=== PATIENT | male | born 1930 | race Hispanic/Latino ===

== ENCOUNTER 2016-11-10 07:47 | Day surgery (SDC) | payer MEDICARE, MEDICAID ==
[2016-10-31 08:29] VITALS: BMI 19.5
[2016-11-10] MEDS ORDERED: cefTRIAXone IV 1 gm in Dextros 50 ML IVPB ONE (08:08)
[2016-11-10] MEDS ORDERED: Iohexol 240 200 ML IJ ONE (08:08)
[2016-11-10] MEDS ORDERED: Lactated Ringer's 500 ML IV ONE ×2 (08:10→08:41)
[2016-11-10] MEDS ORDERED: Midazolam 2 MG/2 ML VIAL ONE (08:13)
--- NOTE | 2016-11-10 08:35 | PCM.SURG1 ---
Surgeon's Initial Post Op Note - Surgeon's Notes Surgeon: maurice curran Construction Management Assistant: none Pre-Operative Diagnosis: urinary retention Operative Findings: same Post-Operative Diagnosis: same Operation Performed: cystogram, change of cystostomy tube Specimen/Specimens Removed: urine Estimated Blood Loss: EBL {In ML}: 0 Blood Products Given: N/A Drains Used: Supra-Pubic Post-Op Condition: Good Date of Surgery/Procedure: 11/10/16 Time of Surgery/Procedure: 08:35
--- NOTE | 2016-11-10 10:16 | RAD ---
PROCEDURE: Fluoroscopy up to 1 hr. HISTORY: BPH, URINARY RETENTION COMPARISON: None TECHNIQUE: Standard protocol for this study/examination. FINDINGS: Submitted images from the current procedure: 6.0 IMPRESSION: Less than 1 hr fluoroscopic time utilized during performance of the procedure.
--- NOTE | 2016-11-11 08:06 | CARD ---
APPROVED REPORT EKG Measurement Heart [id number] W[place] 174P4 [id number] <Conclusion> Normal sinus rhythm Left axis deviation Left bundle branch block Abnormal ECG
[2016-11-12 15:28] VITALS: BP 138/91; PULSE 73; RESP 18; TEMP 97.5; O2SAT 98
--- NOTE | 2016-11-14 08:01 | OP ---
PROCEDURE DATE: 11/10/2016 PREOPERATIVE DIAGNOSES: Urinary retention, benign prostatic hypertrophy. POSTOPERATIVE DIAGNOSES: Urinary retention, benign prostatic hypertrophy. PROCEDURE: Cystogram. Change of cystostomy tube. The procedure was performed under fluoroscopic control. The patient received perioperative antibiotics. The patient was placed in the supine position. The abdomen was prepped in sterile fashion. Iodinated contrast dye was instilled via the cystostomy tube. The cystostomy tube was noted to be wi thin the bladder, although only just within the bladder. There was noted to be moderate bladder trab eculation. There was elevation of the bladder base consistent with prostatic hypertrophy. The syringe was attached to the balloon port to deflate the balloon. There was no fluid in the ballo on port. Thus, there was no fluid able to be removed. The catheter was slid out without difficulty. In fact, the balloon had been fully deflated. A new 18-Boliv[place] silicone Gunderson catheter was inserted through the cystostomy tract into the bladder. The balloon was inflated with 10 mL of saline. The proper balloon position and cystostomy tube posit ion was confirmed on fluoroscopy. Bladder drainage was clear. The patient had his urine sent for bacteriologic examination as well. A sterile dressing was applied. The patient tolerated the procedure without complication. The patient tolerated the procedure without complication. Elisha Mejia MD cc: [phone] TT: 11/14/2016 08:01:05 en
== END 2016-11-10 11:36 | disposition home or self-care (01) ==
LOC: C.SDS 07:47
PROVIDERS: ATTEND Urology
DX: N40.1 Benign prostatic hyperplasia with lower urinary tract symptoms (principal); R33.8 Other retention of urine
CPT/HCPCS: 51705; 76000; 87086; 87181; 93005; J0696; J7120

== ENCOUNTER 2017-02-02 07:06 | Day surgery (SDC) | payer MEDICAID, MEDICARE, OTHER ==
[2016-10-31 08:29] VITALS: BMI 19.5
[2017-02-02] MEDS ORDERED: cefTRIAXone IV 1 gm in Dextros 0 ML IVPB ONE (07:51)
[2017-02-02 07:58] VITALS: RESP 20; TEMP 97.6
[2017-02-02 07:58] LABS: BASO # 0.1 K/uL (0.0-0.2); BASO % 0.8 % (0.0-2.0); EOS # 0.3 K/uL (0.0-0.7); EOS % 2.7 % (0.0-4.0); LYMPH # 0.8 K/uL (1.0-4.3); LYMPH % 7.2 % (20.0-40.0); MEAN CELL VOLUME 95.2 fL (80.0-94.0); MEAN CORPUSCULAR HEMOGLOBIN 31.7 pg (27.0-31.0); MEAN CORPUSCULAR HGB CONC 33.3 g/dL (33.0-37.0); MEAN PLATELET VOLUME 9.2 fL (7.2-11.7); MONO # 1.6 K/uL (0.0-0.8); MONO % 14.6 % (0.0-10.0); NRBC % 0.1 % (0.0-2.0); PLATELET COUNT 229 K/uL (130-400); RED CELL DISTRIBUTION WIDTH 15.5 % (11.5-14.5); WHITE BLOOD COUNT 10.7 K/uL (4.8-10.8)
[2017-02-02 08:19] LABS: POTASSIUM 3.5 mmol/L (3.6-5.2)
[2017-02-02 08:21] LABS: BILIRUBIN,TOTAL 0.9 mg/dL (0.2-1.3)
[2017-02-02 08:22] LABS: CALCIUM 8.9 mg/dl (8.6-10.4)
[2017-02-02 08:45] LABS: EOSINOPHIL 2 % (0-4); NEUTROPHIL 73 % (50-75); TOTAL CELLS COUNTED 100
[2017-02-02] MEDS ORDERED: Lactated Ringer's 1,000 ML IV ONE (09:03)
[2017-02-02] MEDS ORDERED: Iohexol 240 200 ML IJ ONE (09:04)
[2017-02-02] MEDS ORDERED: Lidocaine Hydrochloride 5 ML INJ ONE (09:06)
[2017-02-02] MEDS ORDERED: Propofol 10 mg/ml Inj (20 ML) ONE (09:06)
[2017-02-02] MEDS ORDERED: Gentamicin 80 mg in 0.9% NS 80 MG/100 ML BAG IVPB ONE (09:07)
--- NOTE | 2017-02-02 09:19 | PCM.SURG1 ---
Surgeon's Initial Post Op Note - Surgeon's Notes Surgeon: maurice curran Radio Broadcaster: none Type of Anesthesia: IV Sedation Pre-Operative Diagnosis: urinary retention Operative Findings: sane Post-Operative Diagnosis: same Operation Performed: cystogram, change of cystostomy tube Specimen/Specimens Removed: urine Estimated Blood Loss: EBL {In ML}: 0 Blood Products Given: N/A Drains Used: Supra-Pubic Post-Op Condition: Good Date of Surgery/Procedure: 02/02/17 Time of Surgery/Procedure: 09:19
[2017-02-02 09:46] VITALS: O2SAT 98
--- NOTE | 2017-02-02 10:18 | OP ---
PROCEDURE DATE: 02/02/2017 PREOPERATIVE DIAGNOSIS: Urinary retention. Prostatic enlargement. POSTOPERATIVE DIAGNOSIS: Urinary retention. Prostatic enlargement. PROCEDURES: Cystogram. Change of cystostomy tube. OPERATING SURGEON: Dr. Elisha Mejia The patient was in the supine position. The patient received perioperative antibiotics. The abdomen was prepped and draped in a sterile fashion. Sedation was provided by the anesthesiologist. Iodinated contrast dye was instilled via the cystostomy tube. Procedure was performed under fluorosc opic control. The bladder was noted to be trabeculated. There was elevation of the bladder base consistent with pr ostatic hypertrophy. The cystostomy tube balloon was deflated. There was only 2.5 mL within the balloon. The cystostomy catheter was removed. A new silicone Gunderson catheter was inserted into the bladder. The balloon was filled with 10 mL of sa line. The cystogram demonstrated proper tube position. Post-drainage film was obtained as well. The sterile dressing was applied. Urine had been sent for bacteriologic examination. The patient tolerated the procedure without complication. Elisha Mejia MD cc: [phone] TT: 02/02/2017 10:18:00 en
[2017-02-02 11:16] VITALS: PULSE 68
[2017-02-02 11:18] VITALS: BP 142/79
--- NOTE | 2017-02-03 16:54 | RAD ---
. PROCEDURE: HISTORY: Urinary retention COMPARISON: None TECHNIQUE: Total fluoroscopic time utilized during the procedure: FINDINGS: Submitted images from the current procedure: 2 Correlation with the procedure performed findings noted during fluoroscopy. Please refer to the physician's notes doing the procedure IMPRESSION: Less than 1 hour fluoroscopic time utilized during performance of the procedure
--- NOTE | 2017-02-05 00:49 | CARD ---
APPROVED REPORT EKG Measurement Heart [id number] CT 184P14 [id number] <Conclusion> Normal sinus rhythm Left axis deviation Left bundle branch block Abnormal ECG
== END 2017-02-02 11:00 | disposition home or self-care (01) ==
LOC: C.SDS 07:06
PROVIDERS: ATTEND Urology
DX: N40.0 Benign prostatic hyperplasia without lower urinary tract symptoms (principal); R33.9 Retention of urine, unspecified
CPT/HCPCS: 36415; 51705; 76000; 80053; 85025; 87086; 93005; J1580; J7120; Q9966

== ENCOUNTER 2017-03-14 18:03 | Inpatient (IN) | payer MEDICARE, MEDICAID ==
[2017-03-14 18:34] VITALS: BMI 20.7
[2017-03-14] MEDS ORDERED: cefTRIAXone IV 1 gm in Dextros 50 ML IV ONE (18:51)
[2017-03-14] MEDS ORDERED: Sodium Chloride 0.9% 1,000 ML IV ONE ×2 (18:51→19:47)
--- NOTE | 2017-03-14 19:29 | C.PDOC ---
History Of Present Illness 86 year old male who presents to the ER via EMS after being febrile for the past 3 day, associated with poor PO intake and vomiting for the past 3 weeks. Patient has a chronic indwelling suprapubic catheter and has had multiple visits for urosepsis; denies abdominal pain or hematuria. Time Seen by Provider: 03/14/17 18:45 Chief Complaint (Nursing): Abdominal Pain History Per: Patient History/Exam Limitations: no limitations Onset/Duration Of Symptoms: Days Current Symptoms Are (Timing): Still Present Location Of Pain/Discomfort: Suprapubic Radiation Of Pain To:: None Quality Of Discomfort: Unable To Describe Associated Symptoms: Fever, Vomiting, Loss Of Appetite. denies: Nausea, Urinary Symptoms Exacerbating Factors: None Alleviating Factors: None Recent travel outside of the [place]: No Past Medical History Reviewed: Historical Data, Nursing Documentation, Vital Signs Vital Signs: Last Vital Signs Temp 97.8 F 03/14/17 22:12 Pulse 110 H 03/14/17 22:12 Resp 25 H 03/14/17 22:12 BP 131/84 03/14/17 22:12 Pulse Ox 96 03/14/17 23:26 - Medical History PMH: Anemia, Arthritis, Atrial Fibrillation, Benign Prostatic Hyperplasia, Bronchitis, Cardia Arrhythmia (A fib), CHF, COPD, HTN, Pneumonia, Chronic Kidney Disease (bladder/urine infection), TIA - [facility] Procedures CHANGE DRAINAGE DEVICE IN BLADDER, EXTERNAL APPROACH (02/14/16) CYSTOGRAM NEC (02/02/15) CYSTOSCOPY NEC (10/14/14) DX ULTRASOUND NEC (07/12/14) DX ULTRASOUND-ABDOMEN (01/31/14) DX ULTRASOUND-URINARY (01/06/14) EXCISION OF FACE SKIN, EXTERNAL APPROACH (02/14/16) EXCISION OF FACE SKIN, EXTERNAL APPROACH, DIAGNOSTIC (02/14/16) EXCISION OF FACE SUBCU/FASCIA, OPEN APPROACH, DIAGN (02/14/16) EXCISION OF NECK SKIN, EXTERNAL APPROACH (02/14/16) FLUOROSCOPY OF SUP VENA CAVA USING L OSM CONTRAST, GUIDANCE (02/14/16) INSERTION OF INFUSION DEV INTO SUP VENA CAVA, PERC APPROACH (02/14/16) OTH TRANSURETHRAL PROSTATECTOMY (12/09/13) OTHER SUPRAPUBIC CYSTOSTOMY (02/02/15) PARENTERAL INFUSION OF CONCENTRATED NUT. SUBSTANCE (01/02/15) PERCUTANEOUS CYSTOSTOMY (01/31/14) REPLACE CYSTOSTOMY TUBE (04/17/15) REPLACE FACE SKIN W AUTOL SUB, FULL THICK, DIRECTOR OF SECURITY (02/14/16) REPLACE INDWELLING CATH (01/06/14) TRANSFER FACE SKIN, EXTERNAL APPROACH (02/14/16) ULTRASONOGRAPHY OF SUPERIOR VENA CAVA, GUIDANCE (02/14/16) URETHRAL DILATION (12/09/13) VENOUS CATHETERIZATION NEC (01/18/14) Family History: States: Unknown Family Hx - Social History Hx Tobacco Use: No Hx Alcohol Use: No - Immunization History Hx Tetanus Toxoid Vaccination: Yes Hx Influenza Vaccination: No Hx Pneumococcal Vaccination: Yes Review Of Systems Constitutional: Positive for: Fever Gastrointestinal: Positive for: Vomiting. Negative for: Abdominal Pain Genitourinary: Negative for: Hematuria Physical Exam - Physical Exam Appears: Non-toxic, Other (Weak) Skin: Warm, Dry, Pale Head: Atraumatic, Normacephalic Oral Mucosa: Moist Chest: Symmetrical, No Tenderness Cardiovascular: Rhythm Regular, No Murmur Respiratory: Normal Breath Sounds, No Rales, No Rhonchi, No Wheezing Gastrointestinal/Abdominal: Soft, No Tenderness, Other (Suprapubic catheter with cloudy urine) Neurological/Psych: Oriented x3, Normal Speech, Normal Cognition ED Course And Treatment - Laboratory Results Result Diagrams: 03/14/17 19:31 03/14/17 19:31 Lab Interpretation: Abnormal (UA 3800 wbc's) ECG: Interpreted By Az ECG Rhythm: Atrial Fibrillation, L BBB (unchanged from prior) ECG Interpretation: Abnormal Rate From EC O2 Sat by Pulse Oximetry: 96 Pulse Ox Interpretation: Normal - Radiology CXR: Interpreted by Az CXR Interpretation: Yes: No Acute Disease Progress Note: EKG, CXR, and blood culture ordered. Ceftriaxone and IV fluids administered. Reevaluation Time: 20:04 Reassessment Condition: Improved - Physician Consult Information Outcome Of Conversation: 2006: d/w Krzysztof Yepez- PMOctavio- ok to Obs Medical Decision Making Medical Decision Making: recurrent urosepsis related to chronic suprapubic catheter Disposition Doctor Will See Patient In The: Hospital Counseled Patient/Family Regarding: Studies Performed, Diagnosis - Disposition Disposition: HOSPITALIZED Disposition Time: 20:05 Condition: GOOD - Clinical Impression Clinical Impression: Sepsis, UTI (lower urinary tract infection), Dehydration symptoms, Dehydration - Scribe Statement The provider has reviewed the documentation as recorded by the Scribe Jose Newell All medical record entries made by the Scribe were at my direction and personally dictated by me. I have reviewed the chart and agree that the record accurately reflects my personal performance of the history, physical exam, medical decision making, and the department course for this patient. I have also personally directed, reviewed, and agree with the discharge instructions and disposition.
[2017-03-14 19:34] LABS: BASO # 0.1 K/uL (0.0-0.2); BASO % 0.4 % (0.0-2.0); EOS # 0.3 K/uL (0.0-0.7); EOS % 1.9 % (0.0-4.0); HEMOGLOBIN 13.4 g/dL (12.0-18.0); LYMPH # 0.8 K/uL (1.0-4.3); LYMPH % 5.8 % (20.0-40.0); MEAN CORPUSCULAR HEMOGLOBIN 32.2 pg (27.0-31.0); MEAN CORPUSCULAR HGB CONC 34.3 g/dL (33.0-37.0); MEAN PLATELET VOLUME 8.3 fL (7.2-11.7); MONO % 14.9 % (0.0-10.0); NEUT # 10.4 K/uL (1.8-7.0); PLATELET COUNT 265 K/uL (130-400); RBC 4.17 Mil/uL (4.40-5.90); RED CELL DISTRIBUTION WIDTH 15.1 % (11.5-14.5); WHITE BLOOD COUNT 13.5 K/uL (4.8-10.8)
[2017-03-14 19:42] LABS: ALBUMIN 3.6 g/dL (3.5-5.0)
[2017-03-14 19:45] LABS: ALB/GLOB RATIO 0.8 (1.0-2.1)
[2017-03-14 19:46] LABS: CALCIUM 8.9 mg/dl (8.6-10.4)
[2017-03-14] MEDS ORDERED: cefTRIAXone IV 1 gm in Dextros 50 ML IVPB ONE (19:52)
[2017-03-14] MEDS ORDERED: Sodium Chloride 0.9% 1,000 ML ONE (19:52)
[2017-03-14 19:54] LABS: SQUAMOUS EPITHIAL 2 /hpf (0-5); URINE BACTERIA MANY (<OCC); URINE BILIRUBIN NEGATIVE (NEGATIVE); URINE BLOOD 1+ (NEGATIVE); URINE CLARITY Turbid (Clear); URINE COLOR Yellow (YELLOW); URINE GLUCOSE (UA) NORMAL (Normal); URINE LEUKOCYTE ESTERASE 3+ Leu/uL (Negative); URINE NITRATE POSITIVE (NEGATIVE); URINE PROTEIN 2+ mg/dL (NEGATIVE); URINE UROBILINOGEN NORMAL mg/dL (0.2-1.0); WBC CLUMPS MANY /hpf
[2017-03-14 19:58] LABS: TROPONIN I 0.013 ng/mL (0.00-0.120)
[2017-03-14 20:09] LABS: EOSINOPHIL 1 % (0-4); LYMPHOCYTE 9 % (20-40); MONOCYTE 9 % (0-10); NEUTROPHIL 81 % (50-75); PLATELET ESTIMATE NORMAL (NORMAL); TOTAL CELLS COUNTED 100
[2017-03-14] MEDS: Dextrose 5%/0.9% NS 1,000 ML IV SCH (22:25)
[2017-03-15 00:22] VITALS: RESP 20
[2017-03-15] MEDS: Dextrose 5%/0.9% NS 1,000 ML IV SCH ×3 (08:00→17:00)
--- NOTE | 2017-03-15 10:33 | RAD ---
PROCEDURE: CHEST RADIOGRAPH, 1 VIEW HISTORY: Shortness of breath COMPARISON: 02/21/2016. FINDINGS: LUNGS: The lungs are well inflated and clear. PLEURA: No pneumothorax or pleural fluid seen. CARDIOVASCULAR: Normal. OSSEOUS STRUCTURES: No significant abnormalities. VISUALIZED UPPER ABDOMEN: Normal. OTHER FINDINGS: None. IMPRESSION: No active pulmonary disease.
--- NOTE | 2017-03-15 11:15 | CP.PCM.HP ---
History of Present Illness - History of Present Illness History of Present Illness: HPI: 86 year old male, h/o colitis, BPH, s/p suprapubic catheter, atrial fibrillation seen in ER lethargic. C/o poor appetite and abdominal pain. Present on Admission - Present on Admission Any Indicators Present on Admission: Yes History of DVT/PE: No History of Uncontrolled Diabetes: No Urinary Catheter: Yes Decubitus Ulcer Present: No Review of Systems - Review of Systems All systems: reviewed and no additional remarkable complaints except (bedridden , awake, abdominal pain, no diarrhea, no fever, poor appetite) Past Patient History - Infectious Disease Hx of Infectious Diseases: None, C.diff - Tetanus Immunizations Tetanus Immunization: Unknown - Past Medical History & Family History Past Medical History?: Yes - Past Social History Smoking Status: Never Smoked - CARDIAC Hx Atrial Fibrillation: Yes Hx Cardia Arrhythmia: Yes (A fib) Hx Congestive Heart Failure: Yes Hx Hypertension: Yes - PULMONARY Hx Bronchitis: Yes Hx Chronic Obstructive Pulmonary Disease (COPD): Yes Hx Pneumonia: Yes - NEUROLOGICAL Hx Transient Ischemic Attacks (TIA): Yes - HEENT Hx HEENT Problems: Yes Hx Cataracts: Yes Hx Deafness: Yes Other/Comment: [place] - RENAL Hx Chronic Kidney Disease: Yes (bladder/urine infection) - HEMATOLOGICAL/ONCOLOGICAL Hx Anemia: Yes - INTEGUMENTARY Hx Dermatological Problems: Yes Hx Squamous Cell: Yes - MUSCULOSKELETAL/RHEUMATOLOGICAL Hx Arthritis: Yes Hx Falls: No - GASTROINTESTINAL Hx Gastrointestinal Disorders: Yes Hx Clostridium Difficile: Yes Hx Colitis: Yes Other/Comment: HX of fecal transplant - GENITOURINARY/GYNECOLOGICAL Hx Genitourinary Disorders: Yes Hx Hematuria: Yes (urinary retention) Hx Prostate Problems: Yes (BPH) Other/Comment: Suprapubic Catheter secondary to big prostate. 04/17/15 IR CYSTOSTOMY TUBE INSERTION. 10/29/15, 04/23/16 CYSTO WITH CYSTOSTOMY TUBE CHANGE - SURGICAL HISTORY Hx Surgeries: Yes Hx Herniorrhaphy: Yes Other/Comment: TURP-2011 HERNIA REPAIR 2011,Cystoscopy-01/06/14,Suprapubic Cystostomy-01/28/14,Urethral dilatation-12/09/13,. EXCISION FACIAL CYST. , 11/10/16-CYSTO CHANGE CYSTOSTOMY TUBE - ANESTHESIA Hx Anesthesia: Yes Hx Anesthesia Reactions: No Hx Malignant Hyperthermia: No Meds Allergies/Adverse Reactions: Allergies Allergy/AdvReac Type Severity Reaction Status Date / Time budesonide [From Symbicort] Allergy SHORTNESS Verified 03/14/17 18:34 OF BREATH ciprofloxacin Allergy RASH Verified 03/14/17 18:34 dabigatran etexilate Allergy RASH Verified 03/14/17 18:34 formoterol fumarate Allergy SHORTNESS Verified 03/14/17 18:34 [From Symbicort] OF BREATH latex Allergy RASH Verified 03/14/17 18:34 Sulfa (Sulfonamide Allergy RASH Verified 03/14/17 18:34 Antibiotics) Physical Exam - Constitutional Appears: Chronically Ill - Head Exam Head Exam: NORMAL INSPECTION - Eye Exam Eye Exam: Normal appearance - ENT Exam ENT Exam: Normal Exam - Neck Exam Neck exam: Positive for: Normal Inspection - Respiratory Exam Respiratory Exam: NORMAL BREATHING PATTERN - Cardiovascular Exam Cardiovascular Exam: Irregular Rhythm - GI/Abdominal Exam GI & Abdominal Exam: Soft - Rectal Exam Rectal Exam: Deferred - Extremities Exam Extremities exam: Positive for: normal inspection - Neurological Exam Neurological exam: Alert - Psychiatric Exam Psychiatric exam: Normal Mood Results - Vital Signs Recent Vital Signs: Last Vital Signs Temp 98.2 F 03/15/17 08:37 Pulse 96 H 03/15/17 08:37 Resp 20 03/15/17 08:37 BP 135/85 03/15/17 08:37 Pulse Ox 95 03/15/17 08:37 - Labs Result Diagrams: 03/14/17 19:31 03/14/17 19:31 Assessment & Plan (1) Sepsis Status: Acute (2) Atrial fibrillation Status: Chronic (3) Renal insufficiency Status: Acute - Assessment and Plan (Free Text) Assessment: A/P: Continue medications. Iv hydration. ID consult - Date & Time Date: 03/15/17 Time: 11:20
[2017-03-15] MEDS: Albuterol-Ipratrop 3 mg / 0.5 (3 ml) UD INH SCH ×2 (13:32→20:48)
--- NOTE | 2017-03-15 14:39 | CP.PCM.CON ---
History of Present Illness - History of Present Illness History of Present Illness: INFECTIOUS DISEASE CONSULT; HPI; 86 year old male who presents to the ER via EMS after being febrile for the past 3 day, associated with poor PO intake and vomiting for the past 3 weeks. Patient has a chronic indwelling suprapubic catheter and has had multiple visits for urosepsis; denies abdominal pain or hematuria. IN THE ER PATIENT WAS APPROPRIATELY CULTURED AND GIVEN A DOSE OF ROCEPHIN 1 G. 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 PATIENT ALSO HAS HISTORY OF SQUAMOUS CELL CA BU[place] MUCOSA. S/P BX AND RESECTION 2016 PATIENT PRESENTLY DENIES ANY DIARRHEA. HISTORY OBTAINED FROM THE [facility]-DR NONI CRESPO. INFECTIOUS DISEASE CONSULTATION REQUESTED BY DR CINTRON PATIENT HAS MULTIPLE ALLERGIES TO cIPRO, SULFA, LATEX, DABIGATRAN. PMH: Anemia, Arthritis, Atrial Fibrillation, Benign Prostatic Hyperplasia, Bronchitis, Cardia Arrhythmia (A fib), CHF, COPD, HTN, Pneumonia, Chronic Kidney Disease (bladder/urine infection), TIA ALLERGY; CIPRO, SULFA,DABIGATRAN, LATEX. SOCIAL HISTORY; DENIES SMOKING , SOCIAL DRINKING. FAMILY HISTORY; UNREMARKABLE. Review of Systems - Constitutional Constitutional: Fever, Malaise, Weakness. absent: Chills - EENT Nose/Mouth/Throat: absent: Mouth Lesions - Cardiovascular Cardiovascular: absent: Chest Pain - Respiratory Respiratory: absent: Cough - Gastrointestinal Gastrointestinal: Abdominal Pain, Nausea, Vomiting. absent: Diarrhea - Genitourinary Genitourinary: Pyuria, Freq UTI, Hx /Renal Surgery (PATIENT HAS A SUPRAPUBIC CATHETER SECONDARY TO HIS PROSTATIC HYPERTROPHY/OBSTRUCTIVE UROPATHY.). absent : Bladder Distension - Neurological Neurological: Abnormal Hearing - Hematologic/Lymphatic Hematologic: As Per HPI Past Patient History - Infectious Disease Hx of Infectious Diseases: None, C.diff - Tetanus Immunizations Tetanus Immunization: Unknown - Past Medical History & Family History Past Medical History?: Yes - Past Social History Smoking Status: Never Smoked - CARDIAC Hx Atrial Fibrillation: Yes Hx Cardia Arrhythmia: Yes (A fib) Hx Congestive Heart Failure: Yes Hx Hypertension: Yes - PULMONARY Hx Bronchitis: Yes Hx Chronic Obstructive Pulmonary Disease (COPD): Yes Hx Pneumonia: Yes - NEUROLOGICAL Hx Transient Ischemic Attacks (TIA): Yes - HEENT Hx HEENT Problems: Yes Hx Cataracts: Yes Hx Deafness: Yes Other/Comment: [place] - RENAL Hx Chronic Kidney Disease: Yes (bladder/urine infection) - HEMATOLOGICAL/ONCOLOGICAL Hx Anemia: Yes - INTEGUMENTARY Hx Dermatological Problems: Yes Hx Squamous Cell: Yes - MUSCULOSKELETAL/RHEUMATOLOGICAL Hx Arthritis: Yes Hx Falls: No - GASTROINTESTINAL Hx Gastrointestinal Disorders: Yes Hx Clostridium Difficile: Yes Hx Colitis: Yes Other/Comment: HX of fecal transplant - GENITOURINARY/GYNECOLOGICAL Hx Genitourinary Disorders: Yes Hx Hematuria: Yes (urinary retention) Hx Prostate Problems: Yes (BPH) Other/Comment: Suprapubic Catheter secondary to big prostate. 04/17/15 IR CYSTOSTOMY TUBE INSERTION. 10/29/15, 04/23/16 CYSTO WITH CYSTOSTOMY TUBE CHANGE - SURGICAL HISTORY Hx Surgeries: Yes Hx Herniorrhaphy: Yes Other/Comment: TURP-2011 HERNIA REPAIR 2011,Cystoscopy-01/06/14,Suprapubic Cystostomy-01/28/14,Urethral dilatation-12/09/13,. EXCISION FACIAL CYST. , 11/10/16-CYSTO CHANGE CYSTOSTOMY TUBE - ANESTHESIA Hx Anesthesia: Yes Hx Anesthesia Reactions: No Hx Malignant Hyperthermia: No Meds Allergies/Adverse Reactions: Allergies Allergy/AdvReac Type Severity Reaction Status Date / Time budesonide [From Symbicort] Allergy SHORTNESS Verified 03/14/17 18:34 OF BREATH ciprofloxacin Allergy RASH Verified 03/14/17 18:34 dabigatran etexilate Allergy RASH Verified 03/14/17 18:34 formoterol fumarate Allergy SHORTNESS Verified 03/14/17 18:34 [From Symbicort] OF BREATH latex Allergy RASH Verified 03/14/17 18:34 Sulfa (Sulfonamide Allergy RASH Verified 03/14/17 18:34 Antibiotics) - Medications Medications: Current Medications Albuterol/Ipratropium (Duoneb 3 Mg/0.5 Mg (3 Ml) Ud) 3 ml INH RQ6 [facility] Last Admin: 03/15/17 13:32 Dose: 3 ml Dextrose/Sodium Chloride (Dextrose 5%/0.9% Ns 1000 Ml) 1,000 mls @ 100 mls/hr IV .Q10H [facility] Last Admin: 03/15/17 13:30 Dose: 100 mls/hr Aztreonam 500 mg/ Sodium (Chloride) 50 mls @ 100 mls/hr IVPB Q8 [facility] Last Admin: 03/15/17 13:30 Dose: 100 mls/hr Metoclopramide HCl (Reglan) 10 mg IVP Q12 [facility] Last Admin: 03/15/17 09:59 Dose: 10 mg Physical Exam - Constitutional Appears: No Acute Distress, Chronically Ill - Head Exam Head Exam: NORMAL INSPECTION - Eye Exam Eye Exam: EOMI, PERRL - ENT Exam ENT Exam: Normal Oropharynx - Respiratory Exam Respiratory Exam: Decreased Breath Sounds - Cardiovascular Exam Cardiovascular Exam: REGULAR RHYTHM, +S1, +S2 - GI/Abdominal Exam GI & Abdominal Exam: Normal Bowel Sounds, Soft, Tenderness (EPIGASTRIC REGIONAND SUPRAPUBIC.) - Extremities Exam Extremities exam: Positive for: pedal pulses present. Negative for: calf tenderness, pedal edema - Neurological Exam Neurological exam: Alert, CN II-XII Intact - Psychiatric Exam Psychiatric exam: Normal Mood Results - Vital Signs Recent Vital Signs: Last Vital Signs Temp 98.2 F 03/15/17 08:37 Pulse 96 H 03/15/17 08:37 Resp 20 03/15/17 08:37 BP 135/85 03/15/17 08:37 Pulse Ox 95 03/15/17 08:37 - Labs Result Diagrams: 03/14/17 19:31 03/14/17 19:31 Assessment & Plan (1) Sepsis Status: Acute (2) UTI (lower urinary tract infection) Status: Acute (3) Dehydration Status: Acute (4) Renal insufficiency Status: Acute (5) HTN (hypertension) Status: Acute (6) Suprapubic catheter Status: Acute - Assessment and Plan (Free Text) Plan: PANCULTURES UA/URINE CULTURES. MRSA SCREEN. CONTACT ISOLATION START iv AZACTAM 500 MG EVERY 8 HOURLY 03/14/17. FOLLOW-UP CULTURES TO ADJUST ANTIBIOTICS. IV FLUIDS PER PMD. WE WILL FOLLOW ALONG WITH YOU. THANK YOU.
[2017-03-15] MEDS: Saccharomyces Boulardi 250 mg Cap PO SCH (18:55)
[2017-03-16] MEDS: Albuterol-Ipratrop 3 mg / 0.5 (3 ml) UD INH SCH ×4 (01:21→19:55)
[2017-03-16] MEDS: Dextrose 5%/0.9% NS 1,000 ML IV SCH (02:40)
--- NOTE | 2017-03-16 09:37 | CP.PCM.PN ---
Subjective - Date & Time of Evaluation Date of Evaluation: 03/16/17 Time of Evaluation: 09:35 - Subjective Subjective: Patient feels much better. No more vomiting but appetite is still poor No CP, no SOB, no edema; cough w/ alot of clear mucus Objective - Vital Signs/Intake and Output Vital Signs (last 24 hours): Temp Pulse Resp BP Pulse Ox 98.2 F 87 20 118/80 97 03/16/17 07:05 03/16/17 07:05 03/16/17 07:05 03/16/17 07:05 03/16/17 07:05 Intake and Output: 03/16/17 03/16/17 06:59 18:59 Intake Total 1600 Output Total 1300 Balance 300 - Medications Medications: Current Medications Albuterol/Ipratropium (Duoneb 3 Mg/0.5 Mg (3 Ml) Ud) 3 ml INH RQ6 [facility] Last Admin: 03/16/17 08:17 Dose: 3 ml Finasteride (Proscar) 5 mg PO DAILY [facility] Aztreonam 500 mg/ Sodium (Chloride) 50 mls @ 100 mls/hr IVPB Q8 [facility] Last Admin: 03/16/17 05:58 Dose: 100 mls/hr Metoclopramide HCl (Reglan) 10 mg IVP Q12 [facility] Last Admin: 03/15/17 21:20 Dose: 10 mg Metoprolol Tartrate (Lopressor) 25 mg PO BID [facility] Mirtazapine (Remeron) 7.5 mg PO HS [facility] Saccharomyces Boulardii (Florastor) 250 mg PO DAILY [facility] Last Admin: 03/15/17 18:55 Dose: 250 mg - Constitutional Appears: No Acute Distress - Eye Exam Eye Exam: Normal appearance - ENT Exam ENT Exam: Mucous Membranes Moist - Neck Exam Neck Exam: Full ROM. absent: Lymphadenopathy, Thyromegaly - Cardiovascular Exam Cardiovascular Exam: +S1, +S2, Murmur. absent: Gallop, REGULAR RHYTHM, JVD - GI/Abdominal Exam GI & Abdominal Exam: Soft. absent: Tenderness, Mass - Extremities Exam Extremities Exam: Joint Swelling, Normal Capillary Refill. absent: Calf Tenderness, Full ROM, Pedal Edema Assessment and Plan - Assessment and Plan (Free Text) Assessment: UTI/ sepsis w/ vomiting Hyponatremia; Gen debility HTN, COPD Discuss C/S report Boast supplement and Remeron trial IV Antibiotic as per ID
[2017-03-16] MEDS: Saccharomyces Boulardi 250 mg Cap PO SCH (10:22)
--- NOTE | 2017-03-16 13:53 | CP.PCM.PN ---
Subjective - Date & Time of Evaluation Date of Evaluation: 03/16/17 Time of Evaluation: 13:53 - Subjective Subjective: CHIEF COMPLAINTS TODAY : afebrile, Denies any nausea or vomiting. Complains of chills and wants a bed cover. c/o whitish phlegm/secretions. States he slided down from the chair. The nurse had to put him back on the bed. RN reports no such incident. ? Memory lapses. Offers no other complaints or pain at any site. ROS HEENT : N. Resp : No SOB wheezing, cough Cardio : No CP, PND orthopnea GI : No abd. 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 Musculoskel : N Ext. : Pedal pulses intact, no edema or calf pain Derm : N Psych : N. PE. Pt. is alert awake in no distress. V.S As noted in the chart Head ,ear nose,throat and eyes : Normal. Neck : Supple with normal carotids. Lungs: Clear air entry. Heart : S1 & S2 normal . . No murmur. S4 + Abd : Soft non tender with normal bowel sounds.+VE SUPRAPUBIC CYSTOSTOMY. URINE HAZY/CLOUDY. Neuro : Moves all ext. with no localized deficit. Ext : No edema with intact pulses. Neg. calf tenderness Derm : No rashes or decubitus ulcer. Radiology/Labs . LABS REVIEWED. Urine culture positive +ve Citrobacter freundii. s-Azactam. Objective - Vital Signs/Intake and Output Vital Signs (last 24 hours): Temp Pulse Resp BP Pulse Ox 98.2 F 87 20 119/79 97 03/16/17 07:05 03/16/17 07:05 03/16/17 07:05 03/16/17 10:21 03/16/17 07:05 Intake and Output: 03/16/17 03/16/17 06:59 18:59 Intake Total 1600 Output Total 1300 Balance 300 - Medications Medications: Current Medications Albuterol/Ipratropium (Duoneb 3 Mg/0.5 Mg (3 Ml) Ud) 3 ml INH RQ6 [facility] Last Admin: 03/16/17 13:15 Dose: 3 ml Finasteride (Proscar) 5 mg PO DAILY [facility] Last Admin: 03/16/17 10:24 Dose: 5 mg Aztreonam 500 mg/ Sodium (Chloride) 50 mls @ 100 mls/hr IVPB Q8 [facility] Last Admin: 03/16/17 05:58 Dose: 100 mls/hr Metoclopramide HCl (Reglan) 10 mg IVP Q12 [facility] Last Admin: 03/16/17 10:25 Dose: 10 mg Metoprolol Tartrate (Lopressor) 25 mg PO BID [facility] Last Admin: 03/16/17 10:21 Dose: 25 mg Mirtazapine (Remeron) 7.5 mg PO [facility] Saccharomyces Boulardii (Florastor) 250 mg PO DAILY [facility] Last Admin: 03/16/17 10:22 Dose: 250 mg Assessment and Plan (1) Sepsis Assessment & Plan: blood cultures negative to date. Continue IV antibiotics. Status: Acute (2) UTI (lower urinary tract infection) Assessment & Plan: urine culture positive for Citrobacter freundii. Continue IV Azactam 500 mg every 8 hourly . 03/15/17 follow-up repeat cultures. Status: Acute (3) Dehydration Status: Acute (4) Renal insufficiency Assessment & Plan: creat1.8 /bun 21 NA 126.HYPONATREMIA f/u renal function closely. IV FLUIDS PER PMD. Status: Acute (5) HTN (hypertension) Status: Acute (6) Suprapubic catheter Status: Acute
[2017-03-17] MEDS: Albuterol-Ipratrop 3 mg / 0.5 (3 ml) UD INH SCH ×5 (01:52→19:48)
[2017-03-17 06:09] LABS: BASO # 0.1 K/uL (0.0-0.2); BASO % 0.7 % (0.0-2.0); EOS # 0.4 K/uL (0.0-0.7); EOS % 3.6 % (0.0-4.0); HEMOGLOBIN 11.6 g/dL (12.0-18.0); LYMPH # 0.9 K/uL (1.0-4.3); LYMPH % 7.8 % (20.0-40.0); MEAN CELL VOLUME 95.5 fL (80.0-94.0); MEAN CORPUSCULAR HGB CONC 33.5 g/dL (33.0-37.0); MEAN PLATELET VOLUME 8.2 fL (7.2-11.7); MONO # 1.9 K/uL (0.0-0.8); MONO % 15.5 % (0.0-10.0); NEUT # 8.8 K/uL (1.8-7.0); NEUT % 72.4 % (50.0-75.0); PLATELET COUNT 216 K/uL (130-400); RBC 3.63 Mil/uL (4.40-5.90); RED CELL DISTRIBUTION WIDTH 15.1 % (11.5-14.5); WHITE BLOOD COUNT 12.2 K/uL (4.8-10.8)
[2017-03-17 06:12] LABS: ALBUMIN 2.8 g/dL (3.5-5.0)
[2017-03-17 06:15] LABS: ALB/GLOB RATIO 0.8 (1.0-2.1)
[2017-03-17 06:16] LABS: CALCIUM 7.8 mg/dl (8.6-10.4)
[2017-03-17 08:11] LABS: BASOPHIL 1 % (0-2); EOSINOPHIL 4 % (0-4); LYMPHOCYTE 8 % (20-40); MONOCYTE 15 % (0-10); NEUTROPHIL 72 % (50-75); PLATELET ESTIMATE NORMAL (NORMAL); TOTAL CELLS COUNTED 100
[2017-03-17 08:14] LABS: HYPOCHROMIC SLIGHT; LARGE PLATELETS PRESENT
[2017-03-17] MEDS ORDERED: Potassium Chloride 20 mEq ER Tab PO ONE ×2 (08:30→11:39)
--- NOTE | 2017-03-17 09:06 | CP.PCM.PN ---
Subjective - Date & Time of Evaluation Date of Evaluation: 03/17/17 Time of Evaluation: 08:40 - Subjective Subjective: Pt no complain; ? depress today Start coughing blood in afternoon and worse at night Denies any CP, no SOB, no edema, no palpitation, no diarrhea ID note reviewed; Citrobacter - sensitive to Antibiotic Objective - Vital Signs/Intake and Output Vital Signs (last 24 hours): Temp Pulse Resp BP Pulse Ox 98.2 F 88 20 115/75 95 03/17/17 04:00 03/17/17 04:00 03/17/17 04:00 03/17/17 04:00 03/17/17 04:00 Intake and Output: 03/17/17 03/17/17 06:59 18:59 Output Total 800 Balance -800 - Medications Medications: Current Medications Albuterol/Ipratropium (Duoneb 3 Mg/0.5 Mg (3 Ml) Ud) 3 ml INH RQ6 [facility] Last Admin: 03/17/17 07:37 Dose: 3 ml Finasteride (Proscar) 5 mg PO DAILY [facility] Last Admin: 03/16/17 10:24 Dose: 5 mg Aztreonam 500 mg/ Sodium (Chloride) 50 mls @ 100 mls/hr IVPB Q8 [facility] Last Admin: 03/17/17 05:16 Dose: 100 mls/hr Metoclopramide HCl (Reglan) 10 mg IVP Q12 [facility] Last Admin: 03/16/17 21:18 Dose: 10 mg Metoprolol Tartrate (Lopressor) 25 mg PO BID [facility] Last Admin: 03/16/17 17:56 Dose: 25 mg Mirtazapine (Remeron) 7.5 mg PO HS [facility] Last Admin: 03/16/17 22:29 Dose: Not Given Saccharomyces Boulardii (Florastor) 250 mg PO DAILY [facility] Last Admin: 03/16/17 10:22 Dose: 250 mg - Labs Labs: 03/17/17 05:59 03/17/17 05:59 - Constitutional Appears: No Acute Distress - Eye Exam Eye Exam: Periorbital tenderness - ENT Exam ENT Exam: Mucous Membranes Moist - Neck Exam Neck Exam: Full ROM. absent: Lymphadenopathy, Normal Inspection - Respiratory Exam Respiratory Exam: Clear to Ausculation Bilateral, Rales, Rhonchi. absent: Wheezes - GI/Abdominal Exam GI & Abdominal Exam: Soft. absent: Tenderness, Mass - Extremities Exam Extremities Exam: Full ROM, Normal Capillary Refill. 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
--- NOTE | 2017-03-17 10:45 | CT ---
PROCEDURE: CT Chest without contrast HISTORY: Hemoptysis COMPARISON: None. TECHNIQUE: Contiguous axial images were obtained through the chest without intravenous contrast enhancement. Sagittal and coronal reconstructions were performed. Radiation dose (DLP): 596.67 mGy-cm. This CT exam was performed using one or more of the following dose reduction techniques: Automated exposure control, adjustment of the mA and/or kV according to patient size, and/or use of iterative reconstruction technique. FINDINGS: LUNGS: The lungs are well inflated. There is a 5 mm nodule in the right upper lobe (series 3, image 62), a 5 mm nodule in the lateral segment of the right middle lobe (series 3, image 96), 6 mm nodule in the right lower lobe (series 3, image 78,) and 3 mm subpleural nodule in the right lower lobe (series 3, and image 83). There is multifocal subsegmental atelectasis in both lungs, worse in the left lung base. There is more confluent airspace disease in the right lower lobe. There is a 8 mm peripheral nodularity along the left posterior tracheal wall in the upper trachea. There is scattered centrilobular emphysema in the lungs. MEDIASTINUM: The aorta is not dilated. There is no pathologic mediastinal lymphadenopathy. Subcentimeter mediastinal lymph nodes are likely reactive in etiology. The heart is normal in size. There are coarse atherosclerotic calcifications in the left anterior descending coronary artery. There is no pericardial effusion. PLEURA: There are small pleural effusions, larger on the right. No pneumothorax. BONES: No fracture. No destructive lesion. Diffuse bone demineralization and multilevel degenerative disc disease UPPER ABDOMEN: Grossly unremarkable. OTHER FINDINGS: None. IMPRESSION: 1. 8 mm nodule in the left posterior tracheal wall in the upper trachea. Bronchoscopic rolled relation is advised. 2. No evidence of mass in the lungs. Confluent airspace disease in the right lower lobe could represent pneumonia. Bilateral small pleural effusions, larger on the right. Follow-up after medical management is recommended to ensure complete resolution. 3. Scattered pulmonary nodules in the right lung, the largest in the lower lobe measures 6 mm, which may be post inflammatory in etiology. Follow-up CT scan in 3 FRANSISCO to 6 months interval is recommended to assess stability.
[2017-03-17] MEDS: Saccharomyces Boulardi 250 mg Cap PO SCH (11:25)
--- NOTE | 2017-03-17 12:02 | CP.PCM.PN ---
Subjective - Date & Time of Evaluation Date of Evaluation: 03/17/17 Time of Evaluation: 12:01 - Subjective Subjective: CHIEF COMPLAINTS TODAY : EVENTS NOTED +VE HEMOPTYSIS PT FOR CT CHEST TODAY ROS HEENT : N. Resp : No SOB wheezing, +VE HEMOPTYSIS Cardio : No CP, PND orthopnea GI : No abd. 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 Musculoskel : N Ext. : Pedal pulses intact, no edema or calf pain Derm : N Psych : N. PE. Pt. is alert awake in no distress. V.S As noted in the chart Head ,ear nose,throat and eyes : Normal. Neck : Supple with normal carotids. Lungs: RHONCHI RIGHT-SIDED. Heart : S1 & S2 normal . . No murmur. S4 + Abd : Soft non tender with normal bowel sounds.+VE SUPRAPUBIC CYSTOSTOMY. URINE HAZY/CLOUDY. Neuro : Moves all ext. with no localized deficit. Ext : No edema with intact pulses. Neg. calf tenderness Derm : No rashes or decubitus ulcer. Radiology/Labs . LABS REVIEWED. Urine culture positive +ve Citrobacter freundii. s-Azactam. CT CHEST W/O CONTRAST NOTED-RIGHT LOWER LOBE AIRSPACE DISEASE AND BILATERAL SMALL PLEURAL EFFUSIONS. sCATTERED PULMONARY NODULES RIGHT LUNG. 8MM NODULE LEFT POSTERIOR TRACHEAL WALL ( see full report .) Objective - Vital Signs/Intake and Output Vital Signs (last 24 hours): Temp Pulse Resp BP Pulse Ox 98.2 F 88 20 121/78 95 03/17/17 04:00 03/17/17 04:00 03/17/17 04:00 03/17/17 11:25 03/17/17 04:00 Intake and Output: 03/17/17 03/17/17 06:59 18:59 Output Total 800 Balance -800 - Medications Medications: Current Medications Albuterol/Ipratropium (Duoneb 3 Mg/0.5 Mg (3 Ml) Ud) 3 ml INH RQ6 [facility] Last Admin: 03/17/17 07:37 Dose: 3 ml Finasteride (Proscar) 5 mg PO DAILY [facility] Last Admin: 03/17/17 11:26 Dose: 5 mg Aztreonam 500 mg/ Sodium (Chloride) 50 mls @ 100 mls/hr IVPB Q8 [facility] Last Admin: 03/17/17 05:16 Dose: 100 mls/hr Metoprolol Tartrate (Lopressor) 25 mg PO BID [facility] Last Admin: 03/17/17 11:25 Dose: 25 mg Mirtazapine (Remeron) 7.5 mg PO HS [facility] Last Admin: 03/16/17 22:29 Dose: Not Given Promethazine HCl/Dextromethorphan (Phenergan Dm Syrup) 10 ml PO [facility] Saccharomyces Boulardii (Florastor) 250 mg PO DAILY [facility] Last Admin: 03/17/17 11:25 Dose: 250 mg - Labs Labs: 03/17/17 05:59 03/17/17 05:59 Assessment and Plan (1) Sepsis Status: Acute (2) UTI (lower urinary tract infection) Status: Acute (3) Dehydration Status: Acute (4) Renal insufficiency Status: Acute (5) HTN (hypertension) Status: Acute (6) Suprapubic catheter Status: Acute - Assessment and Plan (Free Text) Assessment: IMPRESSION; SEPSIS NEW RIGHT LOWER LOBE PNEUMONIA- HEMOPTYSIS. UROSEPSIS-cITROBACTER FREUNDII. RENAL INSUFFICIENCY HYPERTENSION SUPRAPUBIC CYSTOSTOMY. HX OF SQUAMOUS CELL CA FACE. PLAN: CONTINUE iv aZACTAM 500 MG EVERY 8 HOURLY.03/15 ADD IV ROCEPHIN 1 G ONCE A DAY DAILY.03/17 FOLLOW-UP h&h. PULMONARY CONSULT IN IN PROGRESS ENT EVALUATION-? TRACHEAL WALL LEISION. ON CT CHEST. PER PMD
--- NOTE | 2017-03-17 16:38 | CP.PCM.CON ---
History of Present Illness - History of Present Illness History of Present Illness: Reason for consult: Hemoptysis Patient is a 86 year old male who presented to the ED on 03/14/17 for PO intake for three days and vomiting for three weeks prior to the date of admission. He was subsequently admitted for sepsis secondary to a UTI. Today the patient presents with a complaint of productive cough with dark red blood in sputum since last night as per caregiver who was bedside. Caregiver also reported that patient has pain in lower ribs when coughing. Patient denied fevers, chills, chest pain, abdominal pain, diarrhea, constipation. PMHx; Anemia, arthritis, atrial fibrillation, benign prostatic hyperplasia, bronchitis, CHF, COPD, CKD, TIA, squamous cell carcinoma of face/buccal mucosa, cataracts, deafness, C. Diff Colitis Surg Hx: indwelling suprapubic catheter (suprapubic cystostomy), cystostomy tube placement (2014), urethral dilation, hernia repair (2011), TURP (2011), facial mass excision, fecal transplantation Family hx: noncontributory Social hx: denies smoking and drugs, drinks ETOH socially Allergies: Cipro, sulfa, dabigatran, latex Review of Systems - Review of Systems Systems not reviewed;Unavailable: Dementia All systems: reviewed and no additional remarkable complaints except (Cough and hemoptysis) Past Patient History - Infectious Disease Hx of Infectious Diseases: None, C.diff - Tetanus Immunizations Tetanus Immunization: Unknown - Past Medical History & Family History Past Medical History?: Yes - Past Social History Smoking Status: Never Smoked - CARDIAC Hx Cardiac Disorders: Yes (A FIB, CARDIAC ARRHYTHMIA,) Hx Congestive Heart Failure: Yes Hx Hypertension: Yes - PULMONARY Hx Chronic Obstructive Pulmonary Disease (COPD): Yes - NEUROLOGICAL Hx Transient Ischemic Attacks (TIA): Yes - HEENT Hx HEENT Problems: Yes Hx Cataracts: Yes Hx Deafness: Yes Other/Comment: TYONEK - RENAL Hx Chronic Kidney Disease: Yes (bladder/urine infection) - HEMATOLOGICAL/ONCOLOGICAL Hx Anemia: Yes - INTEGUMENTARY Hx Dermatological Problems: Yes Hx Squamous Cell: Yes - MUSCULOSKELETAL/RHEUMATOLOGICAL Hx Arthritis: Yes - GASTROINTESTINAL Hx Gastrointestinal Disorders: Yes Hx Clostridium Difficile: Yes Hx Colitis: Yes Other/Comment: HX of fecal transplant - GENITOURINARY/GYNECOLOGICAL Hx Genitourinary Disorders: Yes Hx Hematuria: Yes (urinary retention) Hx Prostate Problems: Yes (BPH) Other/Comment: Suprapubic Catheter secondary to big prostate. 04/17/15 IR CYSTOSTOMY TUBE INSERTION. 10/29/15, 04/23/16 CYSTO WITH CYSTOSTOMY TUBE CHANGE - SURGICAL HISTORY Hx Surgeries: Yes Hx Herniorrhaphy: Yes Other/Comment: TURP-2011 HERNIA REPAIR 2011,Cystoscopy-01/06/14,Suprapubic Cystostomy-01/28/14,Urethral dilatation-12/09/13,. EXCISION FACIAL CYST. , 11/10/16-CYSTO CHANGE CYSTOSTOMY TUBE - ANESTHESIA Hx Anesthesia: Yes Hx Anesthesia Reactions: No Hx Malignant Hyperthermia: No Meds Allergies/Adverse Reactions: Allergies Allergy/AdvReac Type Severity Reaction Status Date / Time budesonide [From Symbicort] Allergy SHORTNESS Verified 03/14/17 18:34 OF BREATH ciprofloxacin Allergy RASH Verified 03/14/17 18:34 dabigatran etexilate Allergy RASH Verified 03/14/17 18:34 formoterol fumarate Allergy SHORTNESS Verified 03/14/17 18:34 [From Symbicort] OF BREATH latex Allergy RASH Verified 03/14/17 18:34 Sulfa (Sulfonamide Allergy RASH Verified 03/14/17 18:34 Antibiotics) - Medications Medications: Current Medications Albuterol/Ipratropium (Duoneb 3 Mg/0.5 Mg (3 Ml) Ud) 3 ml INH RQ6 [facility] Last Admin: 03/17/17 13:31 Dose: Not Given Finasteride (Proscar) 5 mg PO DAILY [facility] Last Admin: 03/17/17 11:26 Dose: 5 mg Aztreonam 500 mg/ Sodium (Chloride) 50 mls @ 100 mls/hr IVPB Q8 [facility] Last Admin: 03/17/17 14:00 Dose: 100 mls/hr Ceftriaxone Sodium 1 gm/ (Sodium Chloride) 100 mls @ 100 mls/hr IVPB Q24H [facility] Metoprolol Tartrate (Lopressor) 25 mg PO BID [facility] Last Admin: 03/17/17 11:25 Dose: 25 mg Mirtazapine (Remeron) 7.5 mg PO HS [facility] Last Admin: 03/16/17 22:29 Dose: Not Given Promethazine HCl/Dextromethorphan (Phenergan Dm Syrup) 10 ml PO HS [facility] Saccharomyces Boulardii (Florastor) 250 mg PO DAILY [facility] Last Admin: 03/17/17 11:25 Dose: 250 mg Physical Exam - Head Exam Head Exam: ATRAUMATIC, NORMOCEPHALIC - Eye Exam Eye Exam: Normal appearance - ENT Exam ENT Exam: Mucous Membranes Moist - Neck Exam Neck exam: Positive for: Normal Inspection - Respiratory Exam Respiratory Exam: Rales - Cardiovascular Exam Cardiovascular Exam: REGULAR RHYTHM - GI/Abdominal Exam GI & Abdominal Exam: Normal Bowel Sounds, Soft - Extremities Exam Extremities exam: Positive for: normal inspection - Neurological Exam Neurological exam: Alert Results - Vital Signs Recent Vital Signs: Last Vital Signs Temp 98.2 F 03/17/17 04:00 Pulse 88 03/17/17 04:00 Resp 20 03/17/17 04:00 BP 121/78 03/17/17 11:25 Pulse Ox 95 03/17/17 04:00 - Labs Result Diagrams: 03/17/17 05:59 03/17/17 05:59 Labs: Laboratory Results - last 24 hr 03/17/17 03/17/17 05:59 05:59 WBC 12.2 H RBC 3.63 L Hgb 11.6 L Hct 34.7 L MCV 95.5 H MCH 32.0 H MCHC 33.5 RDW 15.1 H Plt Count 216 MPV 8.2 Neut % (Auto) 72.4 Lymph % (Auto) 7.8 L [place] % (Auto) 15.5 H Eos % (Auto) 3.6 Baso % (Auto) 0.7 Neut # 8.8 H Lymph # 0.9 L [place] # 1.9 H Eos # 0.4 Baso # 0.1 Neutrophils % (Manual) 72 Lymphocytes % (Manual) 8 L Monocytes % (Manual) 15 H Eosinophils % (Manual) 4 Basophils % (Manual) 1 Platelet Estimate Normal Large Platelets Present Hypochromasia (manual) Slight Sodium 132 Potassium 3.3 L Chloride 98 Carbon Dioxide 21 L Anion Gap 16 BUN 11 Creatinine 1.4 Est GFR ( Amer) 58 Est GFR (Non-Af Amer) 48 Random Glucose 86 Calcium 7.8 L Total Bilirubin 0.6 AST 19 ALT 24 Alkaline Phosphatase 64 Total Protein 6.4 Albumin 2.8 L D Globulin 3.6 Albumin/Globulin Ratio 0.8 L Assessment & Plan (1) Hemoptysis Status: Acute Comment: Most likely secondary to pneumonia. CT of the chest consistent with BIbasilar infiltrate. Continue antibiotics. Spoke with FAMILY and refusing bronchoscopy because of hypoxemia (2) COPD (chronic obstructive pulmonary disease) Status: Acute
[2017-03-17 17:23] LABS: ABG ALLEN TEST POS; ARTERIAL BLOOD GAS HCO3 23.1 mmol/L (21-28); ARTERIAL BLOOD GAS HEMOGLOBIN 11.9 g/dL (11.7-17.4); ARTERIAL BLOOD GAS O2 SAT 97.2 % (95-98); ARTERIAL BLOOD GAS PCO2 28 mm/Hg (35-45); ARTERIAL BLOOD GAS PH 7.47 (7.35-7.45); ARTERIAL BLOOD GAS PO2 64 mm/Hg (80-100); ARTERIAL BLOOD GAS TCO2 21.3 mmol/L (22-28)
[2017-03-17] MEDS: Promethazine DM 12.5 mg-30 mg/10 ml Syrup PO SCH (22:24)
[2017-03-18] MEDS: Albuterol-Ipratrop 3 mg / 0.5 (3 ml) UD INH SCH ×4 (01:29→19:26)
--- NOTE | 2017-03-18 08:51 | CP.PCM.PN ---
Subjective - Date & Time of Evaluation Date of Evaluation: 03/18/17 Time of Evaluation: 08:10 - Subjective Subjective: Patient feels weak, Still poor appetite Dec hemoptysis; No CP, no SOB, no palpitation, no edema (+) no diarrhea bur stool is soft Objective - Vital Signs/Intake and Output Vital Signs (last 24 hours): Temp Pulse Resp BP Pulse Ox 98.3 F 93 H 20 145/81 97 03/18/17 08:30 03/18/17 08:30 03/18/17 08:30 03/18/17 08:30 03/18/17 08:30 Intake and Output: 03/18/17 03/18/17 06:59 18:59 Intake Total 50 Output Total 1550 Balance -1500 - Medications Medications: Current Medications Albuterol/Ipratropium (Duoneb 3 Mg/0.5 Mg (3 Ml) Ud) 3 ml INH RQ6 [facility] Last Admin: 03/18/17 07:23 Dose: 3 ml Finasteride (Proscar) 5 mg PO DAILY [facility] Last Admin: 03/17/17 11:26 Dose: 5 mg Aztreonam 500 mg/ Sodium (Chloride) 50 mls @ 100 mls/hr IVPB Q8 [facility] Last Admin: 03/18/17 05:16 Dose: 100 mls/hr Ceftriaxone Sodium 1 gm/ (Sodium Chloride) 100 mls @ 100 mls/hr IVPB Q24H [facility] Last Admin: 03/17/17 16:30 Dose: 100 mls/hr Metoprolol Tartrate (Lopressor) 25 mg PO BID [facility] Last Admin: 03/17/17 17:53 Dose: 25 mg Mirtazapine (Remeron) 7.5 mg PO [facility] Last Admin: 03/17/17 22:24 Dose: 7.5 mg Promethazine HCl/Dextromethorphan (Phenergan Dm Syrup) 10 ml PO [facility] Last Admin: 03/17/17 22:24 Dose: 10 ml Saccharomyces Boulardii (Florastor) 500 mg PO BID [facility] - Labs Labs: 03/17/17 05:59 03/17/17 05:59 - Constitutional Appears: No Acute Distress - Eye Exam Eye Exam: Normal appearance - ENT Exam ENT Exam: Mucous Membranes Moist - Neck Exam Neck Exam: Full ROM. absent: Lymphadenopathy, Normal Inspection - Respiratory Exam Respiratory Exam: Decreased Breath Sounds, Rhonchi. absent: Rales, Wheezes - Cardiovascular Exam Cardiovascular Exam: REGULAR RHYTHM, +S1, +S2, Murmur. absent: Gallop, JVD - GI/Abdominal Exam GI & Abdominal Exam: Soft. absent: Tenderness, Mass - Extremities Exam Extremities Exam: Full ROM, Normal Capillary Refill. absent: Calf Tenderness, Joint Swelling, Pedal Edema Assessment and Plan - Assessment and Plan (Free Text) Assessment: Bilateral Pneumonia; UTI w/ Sepsis COPD; At Fib; BPH s/p suprapubic Cath Cont # 2 IV Antibiotic c/o ID Discuss CT eport w/ Dr Marquis Supportive care
[2017-03-18] MEDS ORDERED: Potassium Chloride 10 mEq ER Tab PO ONE (09:00)
[2017-03-18] MEDS: Saccharomyces Boulardi 250 mg Cap PO SCH ×2 (10:15→18:09)
--- NOTE | 2017-03-18 15:39 | CP.PCM.PN ---
Subjective - Date & Time of Evaluation Date of Evaluation: 03/18/17 Time of Evaluation: 13:00 - Subjective Subjective: Patient seen and examined. Still complaining off cough productive of blood-tinged sputum Denies fevers chills, denies chest pain Objective - Vital Signs/Intake and Output Vital Signs (last 24 hours): Temp Pulse Resp BP Pulse Ox 98.3 F 93 H 20 128/75 97 03/18/17 08:30 03/18/17 08:30 03/18/17 08:30 03/18/17 10:16 03/18/17 08:30 Intake and Output: 03/18/17 03/18/17 06:59 18:59 Intake Total 50 Output Total 1550 Balance -1500 - Medications Medications: Current Medications Albuterol/Ipratropium (Duoneb 3 Mg/0.5 Mg (3 Ml) Ud) 3 ml INH RQ6 [facility] Last Admin: 03/18/17 13:05 Dose: 3 ml Finasteride (Proscar) 5 mg PO DAILY [facility] Last Admin: 03/18/17 10:17 Dose: 5 mg Aztreonam 500 mg/ Sodium (Chloride) 50 mls @ 100 mls/hr IVPB Q8 [facility] Last Admin: 03/18/17 14:00 Dose: 100 mls/hr Ceftriaxone Sodium 1 gm/ (Sodium Chloride) 100 mls @ 100 mls/hr IVPB Q24H [facility] Last Admin: 03/18/17 15:00 Dose: 100 mls/hr Metoprolol Tartrate (Lopressor) 25 mg PO BID [facility] Last Admin: 03/18/17 10:16 Dose: 25 mg Mirtazapine (Remeron) 7.5 mg PO HS [facility] Last Admin: 03/17/17 22:24 Dose: 7.5 mg Promethazine HCl/Dextromethorphan (Phenergan Dm Syrup) 10 ml PO HS [facility] Last Admin: 03/17/17 22:24 Dose: 10 ml Saccharomyces Boulardii (Florastor) 500 mg PO BID [facility] Last Admin: 03/18/17 10:15 Dose: 500 mg - Labs Labs: 03/17/17 05:59 03/17/17 05:59 - Constitutional Appears: No Acute Distress - Head Exam Head Exam: ATRAUMATIC, NORMOCEPHALIC - Eye Exam Eye Exam: Normal appearance - ENT Exam ENT Exam: Mucous Membranes Moist - Neck Exam Neck Exam: Normal Inspection - Respiratory Exam Respiratory Exam: Rales - Cardiovascular Exam Cardiovascular Exam: REGULAR RHYTHM - GI/Abdominal Exam GI & Abdominal Exam: Soft, Normal Bowel Sounds - Extremities Exam Extremities Exam: Full ROM - Neurological Exam Neurological Exam: Alert, Oriented x3 Assessment and Plan (1) Hemoptysis Assessment & Plan: Continue antibiotics Follow-up culture and sensitivity Continue nebulizer treatment High risk for bronchoscopy Status: Acute (2) COPD (chronic obstructive pulmonary disease) Status: Acute
--- NOTE | 2017-03-18 15:58 | CP.PCM.PN ---
Subjective - Date & Time of Evaluation Date of Evaluation: 03/18/17 Time of Evaluation: 15:57 - Subjective Subjective: CHIEF COMPLAINTS TODAY : AFEBRILE, C/O BLOOD TINGED SPUTUM INTERMITTENTLY. FEELS WEAK Seen by pulmonary. ROS HEENT : N. Resp : No SOB wheezing, +VE BLOOD TINGED SPUTUM Cardio : No CP, PND orthopnea GI : No abd. 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 Musculoskel : N Ext. : Pedal pulses intact, no edema or calf pain Derm : N Psych : N. PE. Pt. is alert awake in no distress. V.S As noted in the chart Head ,ear nose,throat and eyes : Normal. Neck : Supple with normal carotids. Lungs: RHONCHI RIGHT-SIDED. Heart : S1 & S2 normal . . No murmur. S4 + Abd : Soft non tender with normal bowel sounds.+VE SUPRAPUBIC CYSTOSTOMY. URINE HAZY/CLOUDY. Neuro : Moves all ext. with no localized deficit. Ext : No edema with intact pulses. Neg. calf tenderness Derm : No rashes or decubitus ulcer. Radiology/Labs . LABS REVIEWED. Urine culture positive +ve Citrobacter freundii. s-Azactam. CT CHEST W/O CONTRAST NOTED-RIGHT LOWER LOBE AIRSPACE DISEASE AND BILATERAL SMALL PLEURAL EFFUSIONS. sCATTERED PULMONARY NODULES RIGHT LUNG. 8MM NODULE LEFT POSTERIOR TRACHEAL WALL ( see full report .) Objective - Vital Signs/Intake and Output Vital Signs (last 24 hours): Temp Pulse Resp BP Pulse Ox 98.3 F 93 H 20 128/75 97 03/18/17 08:30 03/18/17 08:30 03/18/17 08:30 03/18/17 10:16 03/18/17 08:30 Intake and Output: 03/18/17 03/18/17 06:59 18:59 Intake Total 50 Output Total 1550 Balance -1500 - Medications Medications: Current Medications Albuterol/Ipratropium (Duoneb 3 Mg/0.5 Mg (3 Ml) Ud) 3 ml INH RQ6 [facility] Last Admin: 03/18/17 13:05 Dose: 3 ml Finasteride (Proscar) 5 mg PO DAILY [facility] Last Admin: 03/18/17 10:17 Dose: 5 mg Aztreonam 500 mg/ Sodium (Chloride) 50 mls @ 100 mls/hr IVPB Q8 [facility] Last Admin: 03/18/17 14:00 Dose: 100 mls/hr Ceftriaxone Sodium 1 gm/ (Sodium Chloride) 100 mls @ 100 mls/hr IVPB Q24H [facility] Last Admin: 03/18/17 15:00 Dose: 100 mls/hr Metoprolol Tartrate (Lopressor) 25 mg PO BID [facility] Last Admin: 03/18/17 10:16 Dose: 25 mg Mirtazapine (Remeron) 7.5 mg PO [facility] Last Admin: 03/17/17 22:24 Dose: 7.5 mg Promethazine HCl/Dextromethorphan (Phenergan Dm Syrup) 10 ml PO [facility] Last Admin: 03/17/17 22:24 Dose: 10 ml Saccharomyces Boulardii (Florastor) 500 mg PO BID [facility] Last Admin: 03/18/17 10:15 Dose: 500 mg - Labs Labs: 03/17/17 05:59 03/17/17 05:59 Assessment and Plan (1) Sepsis Status: Acute (2) UTI (lower urinary tract infection) Status: Acute (3) Dehydration Status: Acute (4) Renal insufficiency Status: Acute (5) HTN (hypertension) Status: Acute (6) Suprapubic catheter Status: Acute - Assessment and Plan (Free Text) Assessment: IMPRESSION; SEPSIS NEW RIGHT LOWER LOBE PNEUMONIA- HEMOPTYSIS R/O ATYPICAL PNEUMONIA R/O MALIGNANCY UROSEPSIS-CITROBACTER FREUNDII. RENAL INSUFFICIENCY HYPERTENSION SUPRAPUBIC CYSTOSTOMY. HX OF SQUAMOUS CELL CA FACE. PLAN: CONTINUE iv aZACTAM 500 MG EVERY 8 HOURLY.03/15 ADD IV ROCEPHIN 1 G ONCE A DAY DAILY.03/17 SPUTUM FOR GRAM STAIN AND CULTURE QUANTIFERON GOLD TB- TEST. PULMONARY TOILET. ENT EVALUATION-? TRACHEAL WALL LEISION. ON CT CHEST. PER PMD
--- NOTE | 2017-03-18 18:20 | CARD ---
APPROVED REPORT EKG Measurement Heart [id number] <Conclusion> Atrial fibrillation with rapid ventricular response Left axis deviation Left bundle branch block Abnormal ECG
[2017-03-18] MEDS: Promethazine DM 12.5 mg-30 mg/10 ml Syrup PO SCH (21:50)
[2017-03-19] MEDS: Albuterol-Ipratrop 3 mg / 0.5 (3 ml) UD INH SCH ×4 (01:42→19:22)
--- NOTE | 2017-03-19 09:13 | CP.PCM.PN ---
Subjective - Date & Time of Evaluation Date of Evaluation: 03/19/17 Time of Evaluation: 08:34 - Subjective Subjective: Pt asleep; Did not have a good night No diarrhea; Just feel asleep as per RN Objective - Vital Signs/Intake and Output Vital Signs (last 24 hours): Temp Pulse Resp BP Pulse Ox 97.5 F L 92 H 20 122/88 98 03/19/17 08:12 03/19/17 08:12 03/19/17 08:12 03/19/17 08:12 03/19/17 08:12 Intake and Output: 03/19/17 03/19/17 06:59 18:59 Intake Total 50 Output Total 1200 Balance -1150 - Medications Medications: Current Medications Albuterol/Ipratropium (Duoneb 3 Mg/0.5 Mg (3 Ml) Ud) 3 ml INH RQ6 [facility] Last Admin: 03/19/17 07:13 Dose: 3 ml Finasteride (Proscar) 5 mg PO DAILY [facility] Last Admin: 03/18/17 10:17 Dose: 5 mg Aztreonam 500 mg/ Sodium (Chloride) 50 mls @ 100 mls/hr IVPB Q8 [facility] Last Admin: 03/19/17 05:53 Dose: 100 mls/hr Ceftriaxone Sodium 1 gm/ (Sodium Chloride) 100 mls @ 100 mls/hr IVPB Q24H [facility] Last Admin: 03/18/17 15:00 Dose: 100 mls/hr Metoprolol Tartrate (Lopressor) 25 mg PO BID [facility] Last Admin: 03/18/17 18:12 Dose: Not Given Mirtazapine (Remeron) 7.5 mg PO HS [facility] Last Admin: 03/18/17 21:50 Dose: 7.5 mg Promethazine HCl/Dextromethorphan (Phenergan Dm Syrup) 10 ml PO HS [facility] Last Admin: 03/18/17 21:50 Dose: 10 ml Saccharomyces Boulardii (Florastor) 500 mg PO BID [facility] Last Admin: 03/18/17 18:09 Dose: 500 mg - Labs Labs: 03/17/17 05:59 03/17/17 05:59 - Constitutional Appears: No Acute Distress - Eye Exam Eye Exam: Normal appearance - ENT Exam ENT Exam: Mucous Membranes Moist - Neck Exam Neck Exam: Full ROM. absent: Lymphadenopathy, Meningismus - Respiratory Exam Respiratory Exam: Clear to Ausculation Bilateral. absent: Rales, Rhonchi, Wheezes - Cardiovascular Exam Cardiovascular Exam: REGULAR RHYTHM, +S1, +S2. absent: Gallop, JVD - GI/Abdominal Exam GI & Abdominal Exam: Soft. absent: Tenderness, Mass - Extremities Exam Extremities Exam: Full ROM, Normal Capillary Refill. absent: Calf Tenderness, Joint Swelling, Pedal Edema Assessment and Plan - Assessment and Plan (Free Text) Assessment: Zeyad pneumonia w/ Hemoptysis UTI/ Sepsis Gen Debility w/ anorexia Cont meds/ care
[2017-03-19] MEDS: Saccharomyces Boulardi 250 mg Cap PO SCH ×2 (10:24→18:25)
--- NOTE | 2017-03-19 12:03 | CP.PCM.PN ---
Subjective - Date & Time of Evaluation Date of Evaluation: 03/19/17 Time of Evaluation: 10:10 - Subjective Subjective: patient seen and examined. Awake responsive and no further hemoptysis Dyspnea on minimal exertion Afebrile Objective - Vital Signs/Intake and Output Vital Signs (last 24 hours): Temp Pulse Resp BP Pulse Ox 97.5 F L 92 H 20 130/79 98 03/19/17 08:12 03/19/17 08:12 03/19/17 08:12 03/19/17 10:24 03/19/17 08:12 Intake and Output: 03/19/17 03/19/17 06:59 18:59 Intake Total 50 Output Total 1200 Balance -1150 - Medications Medications: Current Medications Albuterol/Ipratropium (Duoneb 3 Mg/0.5 Mg (3 Ml) Ud) 3 ml INH RQ6 [facility] Last Admin: 03/19/17 07:13 Dose: 3 ml Finasteride (Proscar) 5 mg PO DAILY [facility] Last Admin: 03/19/17 10:23 Dose: 5 mg Aztreonam 500 mg/ Sodium (Chloride) 50 mls @ 100 mls/hr IVPB Q8 [facility] Last Admin: 03/19/17 05:53 Dose: 100 mls/hr Ceftriaxone Sodium 1 gm/ (Sodium Chloride) 100 mls @ 100 mls/hr IVPB Q24H [facility] Last Admin: 03/18/17 15:00 Dose: 100 mls/hr Metoprolol Tartrate (Lopressor) 25 mg PO BID [facility] Last Admin: 03/19/17 10:24 Dose: 25 mg Mirtazapine (Remeron) 7.5 mg PO HS [facility] Last Admin: 03/18/17 21:50 Dose: 7.5 mg Promethazine HCl/Dextromethorphan (Phenergan Dm Syrup) 10 ml PO HS [facility] Last Admin: 03/18/17 21:50 Dose: 10 ml Saccharomyces Boulardii (Florastor) 500 mg PO BID [facility] Last Admin: 03/19/17 10:24 Dose: 500 mg - Labs Labs: 03/17/17 05:59 03/17/17 05:59 - Head Exam Head Exam: ATRAUMATIC, NORMOCEPHALIC - Eye Exam Eye Exam: Normal appearance - ENT Exam ENT Exam: Mucous Membranes Moist - Neck Exam Neck Exam: Normal Inspection - Respiratory Exam Respiratory Exam: Rales, Rhonchi - Cardiovascular Exam Cardiovascular Exam: REGULAR RHYTHM - GI/Abdominal Exam GI & Abdominal Exam: Soft, Normal Bowel Sounds Assessment and Plan (1) Hemoptysis Assessment & Plan: most likely secondary to pneumonia Continue antibiotics and followup chest x-ray Followup ABG to see any improvement in hypoxemia Status: Acute (2) COPD (chronic obstructive pulmonary disease) Status: Acute
--- NOTE | 2017-03-19 16:21 | CP.PCM.PN ---
Subjective - Date & Time of Evaluation Date of Evaluation: 03/19/17 Time of Evaluation: 16:21 - Subjective Subjective: CHIEF COMPLAINTS TODAY : AFEBRILE, still with blood in sputum as per RN FEELS WEAK/AND DYSPNEIC AT REST ROS HEENT : N. Resp : No SOB wheezing, +VE BLOOD TINGED SPUTUM Cardio : No CP, PND orthopnea GI : No abd. 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 Musculoskel : N Ext. : Pedal pulses intact, no edema or calf pain Derm : N Psych : N. PE. Pt. is alert awake in no distress. V.S As noted in the chart Head ,ear nose,throat and eyes : Normal. Neck : Supple with normal carotids. Lungs: RHONCHI RIGHT-SIDED. Heart : S1 & S2 normal . . No murmur. S4 + Abd : Soft non tender with normal bowel sounds.+VE SUPRAPUBIC CYSTOSTOMY. URINE HAZY/CLOUDY. Neuro : Moves all ext. with no localized deficit. Ext : No edema with intact pulses. Neg. calf tenderness Derm : No rashes or decubitus ulcer. Radiology/Labs . LABS REVIEWED. Urine culture positive +ve Citrobacter freundii. s-Azactam. CT CHEST W/O CONTRAST NOTED-RIGHT LOWER LOBE AIRSPACE DISEASE AND BILATERAL SMALL PLEURAL EFFUSIONS. sCATTERED PULMONARY NODULES RIGHT LUNG. 8MM NODULE LEFT POSTERIOR TRACHEAL WALL ( see full report .) Objective - Vital Signs/Intake and Output Vital Signs (last 24 hours): Temp Pulse Resp BP Pulse Ox 97.5 F L 92 H 20 130/79 98 03/19/17 08:12 03/19/17 08:12 03/19/17 08:12 03/19/17 10:24 03/19/17 08:12 Intake and Output: 03/19/17 03/19/17 06:59 18:59 Intake Total 50 Output Total 1200 Balance -1150 - Medications Medications: Current Medications Albuterol/Ipratropium (Duoneb 3 Mg/0.5 Mg (3 Ml) Ud) 3 ml INH RQ6 [facility] Last Admin: 03/19/17 13:08 Dose: Not Given Finasteride (Proscar) 5 mg PO DAILY [facility] Last Admin: 03/19/17 10:23 Dose: 5 mg Aztreonam 500 mg/ Sodium (Chloride) 50 mls @ 100 mls/hr IVPB Q8 [facility] Last Admin: 03/19/17 14:00 Dose: 100 mls/hr Ceftriaxone Sodium 1 gm/ (Sodium Chloride) 100 mls @ 100 mls/hr IVPB Q24H [facility] Last Admin: 03/19/17 15:00 Dose: 100 mls/hr Metoprolol Tartrate (Lopressor) 25 mg PO BID [facility] Last Admin: 03/19/17 10:24 Dose: 25 mg Mirtazapine (Remeron) 7.5 mg PO HS [facility] Last Admin: 03/18/17 21:50 Dose: 7.5 mg Promethazine HCl/Dextromethorphan (Phenergan Dm Syrup) 10 ml PO HS [facility] Last Admin: 03/18/17 21:50 Dose: 10 ml Saccharomyces Boulardii (Florastor) 500 mg PO BID [facility] Last Admin: 03/19/17 10:24 Dose: 500 mg - Labs Labs: 03/17/17 05:59 03/17/17 05:59 Assessment and Plan (1) Sepsis Status: Acute (2) UTI (lower urinary tract infection) Status: Acute (3) Dehydration Status: Acute (4) Renal insufficiency Status: Acute (5) HTN (hypertension) Status: Acute (6) Suprapubic catheter Status: Acute - Assessment and Plan (Free Text) Assessment: IMPRESSION; SEPSIS NEW RIGHT LOWER LOBE PNEUMONIA- HEMOPTYSIS R/O ATYPICAL PNEUMONIA R/O MALIGNANCY UROSEPSIS-CITROBACTER FREUNDII. RENAL INSUFFICIENCY HYPERTENSION SUPRAPUBIC CYSTOSTOMY. HX OF SQUAMOUS CELL CA FACE. PLAN: DC iv AZACTAM 500 MG EVERY 8 HOURLY.03/15 INCREASE IV ROCEPHIN 1 G Q 12HRLY DAILY.03/17 SPUTUM FOR GRAM STAIN AND CULTURE QUANTIFERON GOLD TB- TEST IN PROGRESS PULMONARY TOILET. CASE DISCUSSED W STAFF /AND HOOD FITTER MS FIGUEREDO . ?PICC LINE
[2017-03-19] MEDS ORDERED: cefTRIAXone IV 1 gm in Dextros 50 ML IVPB SCH (17:45)
[2017-03-19] MEDS: cefTRIAXone IV 1 gm in Dextros 50 ML IVPB SCH (20:34)
[2017-03-19] MEDS: Promethazine DM 12.5 mg-30 mg/10 ml Syrup PO SCH (21:17)
[2017-03-20] MEDS: Albuterol-Ipratrop 3 mg / 0.5 (3 ml) UD INH SCH ×3 (01:20→13:10)
[2017-03-20] MEDS: cefTRIAXone IV 1 gm in Dextros 50 ML IVPB SCH ×2 (08:00→21:00)
--- NOTE | 2017-03-20 08:37 | CP.PCM.PN ---
Subjective - Date & Time of Evaluation Date of Evaluation: 03/20/17 Time of Evaluation: 08:20 - Subjective Subjective: Pt no complain; no CP, no edema, (+) very poor appetite and feels weak - "can not get ahead" Mucus is brownish. no gross hemoptysis Objective - Vital Signs/Intake and Output Vital Signs (last 24 hours): Temp Pulse Resp BP Pulse Ox 98.4 F 107 H 20 125/69 99 03/20/17 08:28 03/20/17 08:28 03/20/17 08:28 03/20/17 08:28 03/20/17 08:28 Intake and Output: 03/20/17 03/20/17 06:59 18:59 Intake Total 50 Output Total 700 Balance -650 - Medications Medications: Current Medications Albuterol/Ipratropium (Duoneb 3 Mg/0.5 Mg (3 Ml) Ud) 3 ml INH RQ6 [facility] Last Admin: 03/20/17 07:56 Dose: 3 ml Finasteride (Proscar) 5 mg PO DAILY [facility] Last Admin: 03/19/17 10:23 Dose: 5 mg Ceftriaxone Sodium (Rocephin Iv 1 Gm Duplex) 50 mls @ 100 mls/hr IVPB Q12H [facility] Last Admin: 03/19/17 20:34 Dose: 100 mls/hr Metoprolol Tartrate (Lopressor) 25 mg PO BID [facility] Last Admin: 03/19/17 18:25 Dose: 25 mg Mirtazapine (Remeron) 7.5 mg PO HS [facility] Last Admin: 03/19/17 21:17 Dose: 7.5 mg Promethazine HCl/Dextromethorphan (Phenergan Dm Syrup) 10 ml PO HS [facility] Last Admin: 03/19/17 21:17 Dose: 10 ml Saccharomyces Boulardii (Florastor) 500 mg PO BID [facility] Last Admin: 03/19/17 18:25 Dose: 500 mg - Labs Labs: 03/17/17 05:59 03/17/17 05:59 - Constitutional Appears: No Acute Distress - Eye Exam Eye Exam: Normal appearance - ENT Exam ENT Exam: Mucous Membranes Moist, Normal Oropharynx - Neck Exam Neck Exam: Full ROM. absent: Lymphadenopathy - Respiratory Exam Respiratory Exam: Decreased Breath Sounds. absent: Rales, Rhonchi, Wheezes - Cardiovascular Exam Cardiovascular Exam: REGULAR RHYTHM, Murmur. absent: Gallop, JVD - GI/Abdominal Exam GI & Abdominal Exam: Soft, Tenderness. absent: Mass - Extremities Exam Extremities Exam: Full ROM. absent: Calf Tenderness, Joint Swelling, Normal Capillary Refill, Pedal Edema Assessment and Plan - Assessment and Plan (Free Text) Assessment: Zeyad pneumonia; UTI/ sepsis COPD, s/p Suprapubic cath (+) supplement / encourage to eat Check labs
[2017-03-20] MEDS: Saccharomyces Boulardi 250 mg Cap PO SCH ×2 (09:35→18:03)
--- NOTE | 2017-03-20 09:50 | RAD ---
HISTORY: f/u pneumonia COMPARISON: Chest radiograph 03/14/2017. FINDINGS: LUNGS: Bilateral basilar opacities appreciated with left hemidiaphragm silhouette in fact. Small bilateral pleural effusions are suspected and left basilar infiltrate or atelectasis is likely. Borderline infiltrate right base. Cardiac size remains prominent appearing. Borderline CHF pattern based on hypervascular markings and somewhat increased right-sided reticular markings no pneumothorax. Trachea is midline. PLEURA: As above CARDIOVASCULAR: As above OSSEOUS STRUCTURES: No significant abnormalities. VISUALIZED UPPER ABDOMEN: Normal. OTHER FINDINGS: None. IMPRESSION: Likely CHF pattern with left basilar atelectasis or infiltrate not excluded. Minimal bilateral yes pleural effusions are suspected. Borderline right basilar infiltrate. Continued clinical and radiographic monitor advised.
--- NOTE | 2017-03-20 12:11 | CP.PCM.PN ---
Objective - Vital Signs/Intake and Output Vital Signs (last 24 hours): Temp Pulse Resp BP Pulse Ox 98.4 F 107 H 20 125/79 99 03/20/17 08:28 03/20/17 08:28 03/20/17 08:28 03/20/17 09:35 03/20/17 08:28 Intake and Output: 03/20/17 03/20/17 06:59 18:59 Intake Total 50 Output Total 700 Balance -650 - Medications Medications: Current Medications Albuterol/Ipratropium (Duoneb 3 Mg/0.5 Mg (3 Ml) Ud) 3 ml INH RQ6 [facility] Last Admin: 03/20/17 07:56 Dose: 3 ml Finasteride (Proscar) 5 mg PO DAILY [facility] Last Admin: 03/20/17 09:35 Dose: 5 mg Ceftriaxone Sodium (Rocephin Iv 1 Gm Duplex) 50 mls @ 100 mls/hr IVPB Q12H [facility] Last Admin: 03/20/17 08:00 Dose: 100 mls/hr Metoprolol Tartrate (Lopressor) 25 mg PO BID [facility] Last Admin: 03/20/17 09:35 Dose: 25 mg Mirtazapine (Remeron) 7.5 mg PO HS [facility] Last Admin: 03/19/17 21:17 Dose: 7.5 mg Promethazine HCl/Dextromethorphan (Phenergan Dm Syrup) 10 ml PO HS [facility] Last Admin: 03/19/17 21:17 Dose: 10 ml Saccharomyces Boulardii (Florastor) 500 mg PO BID [facility] Last Admin: 03/20/17 09:35 Dose: 500 mg - Labs Labs: 03/17/17 05:59 03/17/17 05:59 Assessment and Plan (1) Hemoptysis Status: Acute (2) COPD (chronic obstructive pulmonary disease) Status: Acute
--- NOTE | 2017-03-20 12:28 | CP.PCM.PN ---
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 SEEN BY CARDIOLOGY S/P PICC LINE ROS HEENT : N. Resp : No SOB wheezing, +VE BLOOD TINGED SPUTUM Cardio : No CP, PND orthopnea GI : No abd. 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 Musculoskel : N Ext. : Pedal pulses intact, no edema or calf pain Derm : N Psych : N. PE. Pt. is alert awake in no distress. V.S As noted in the chart Head ,ear nose,throat and eyes : Normal. Neck : Supple with normal carotids. Lungs: FEW RHONCHI RIGHT-SIDED. Heart : S1 & S2 normal . . No murmur. S4 + Abd : Soft non tender with normal bowel sounds.+VE SUPRAPUBIC CYSTOSTOMY. URINE CLEARING UP. Neuro : Moves all ext. with no localized deficit. Ext : No edema with intact pulses. Neg. calf tenderness Derm : No rashes or decubitus ulcer. Radiology/Labs . LABS REVIEWED. SPUTUM +VE YEAST SP. Urine culture positive +ve Citrobacter freundii. s-Azactam. CT CHEST W/O CONTRAST NOTED-RIGHT LOWER LOBE AIRSPACE DISEASE AND BILATERAL SMALL PLEURAL EFFUSIONS. sCATTERED PULMONARY NODULES RIGHT LUNG. 8MM NODULE LEFT POSTERIOR TRACHEAL WALL ( see full report .) Objective - Vital Signs/Intake and Output Vital Signs (last 24 hours): Temp Pulse Resp BP Pulse Ox 98.4 F 107 H 20 125/79 99 03/20/17 08:28 03/20/17 08:28 03/20/17 08:28 03/20/17 09:35 03/20/17 08:28 Intake and Output: 03/20/17 03/20/17 06:59 18:59 Intake Total 50 Output Total 700 Balance -650 - Medications Medications: Current Medications Albuterol/Ipratropium (Duoneb 3 Mg/0.5 Mg (3 Ml) Ud) 3 ml INH RQ6 [facility] Last Admin: 03/20/17 07:56 Dose: 3 ml Finasteride (Proscar) 5 mg PO DAILY [facility] Last Admin: 03/20/17 09:35 Dose: 5 mg Ceftriaxone Sodium (Rocephin Iv 1 Gm Duplex) 50 mls @ 100 mls/hr IVPB Q12H [facility] Last Admin: 03/20/17 08:00 Dose: 100 mls/hr Metoprolol Tartrate (Lopressor) 25 mg PO BID [facility] Last Admin: 03/20/17 09:35 Dose: 25 mg Mirtazapine (Remeron) 7.5 mg PO [facility] Last Admin: 03/19/17 21:17 Dose: 7.5 mg Promethazine HCl/Dextromethorphan (Phenergan Dm Syrup) 10 ml PO HS [facility] Last Admin: 03/19/17 21:17 Dose: 10 ml Saccharomyces Boulardii (Florastor) 500 mg PO BID [facility] Last Admin: 03/20/17 09:35 Dose: 500 mg - Labs Labs: 03/17/17 05:59 03/17/17 05:59 Assessment and Plan (1) Sepsis Status: Acute (2) UTI (lower urinary tract infection) Status: Acute (3) Dehydration Status: Acute (4) Renal insufficiency Status: Acute (5) HTN (hypertension) Status: Acute (6) Suprapubic catheter Status: Acute - Assessment and Plan (Free Text) Assessment: IMPRESSION; SEPSIS RIGHT LOWER LOBE PNEUMONIA- HEMOPTYSIS R/O ATYPICAL PNEUMONIA R/O MALIGNANCY UROSEPSIS-CITROBACTER FREUNDII. RENAL INSUFFICIENCY HYPERTENSION SUPRAPUBIC CYSTOSTOMY. HX OF SQUAMOUS CELL CA FACE. PLAN: REPEAT UA/ URINE CULTURE. BLOOD WORKS FOR TOMORROW. F/U qUANTIferon gOLD tb TEST. NYSTATIN 5 Ml SWISH AND SWALLOW 3 TIMES A DAY X 7 DAYS. CASE DISCUSSED WITH NURSE PRACTITIONER. MS. FIGUEREDO. wHEN MEDICALLY STABLE PATIENT CAN BE DISCHARGED ON iv rOCEPHIN 2 G ONCE A DAY DAILY FOR 10 DAYS. fOLLOW-UP cbc, bmp, LIVER PROFILE WEEKLY AND NOTIFY pmd. picc LINE CARE PER INFUSION COMPANY. 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 PATIENT WILL BE FOLLOWED WHILE IN THE HOSPITAL. I
[2017-03-20] MEDS ORDERED: Lidocaine 1% Inj (20ml) ONE (15:55)
--- NOTE | 2017-03-20 16:19 | PCM.SURG1 ---
Surgeon's Initial Post Op Note - Surgeon's Notes Surgeon: Luiz System Safety Manager: None Type of Anesthesia: Local Pre-Operative Diagnosis: IV access. Operative Findings: Patent right brachial vein with possible central occlusion. Post-Operative Diagnosis: IV access. Operation Performed: Right brachial vein 4F 22cm SL PICC with tip at the subclavian vein segment. Guidewire could not be advanced to the SVC due to possible central occlusion. Specimen/Specimens Removed: None. Estimated Blood Loss: EBL {In ML}: 1 Date of Surgery/Procedure: 03/20/17 Time of Surgery/Procedure: 16:10
--- NOTE | 2017-03-20 17:00 | CP.PCM.CON ---
History of Present Illness - History of Present Illness History of Present Illness: I was asked to evaluate patient by Dr. Yepez. Patient is a 86 year old male with PMH HTN, atrial fibrillation LBBB who presents with weakness. Patient has a suprapubic cathter and has had previous infection. He presents with lethargy and weakness. He was found to have periods of tachycardia. At home he did not take AV shanika david,although currently he is on metoprolol. He appears comfortable. Review of Systems - Constitutional Constitutional: Lethargy, Weakness - EENT Eyes: absent: As Per HPI, Blind Spots, Blurred Vision, Change in Vision, Decreased Night Vision, Diplopia, Discharge, Dry Eye, Exophthalmos, Floaters, Irritation, Itchy Eyes, Loss of Peripheral Vision, Pain, Photophobia, Requires Corrective Lenses, Sees Flashes, Spots in Vision, Tunnel Vision, Other Visual Disturbances, Loss of Vision, Other Ears: absent: As Per HPI, Decreased Hearing, Ear Discharge, Ear Pain, Tinnitus, Abnormal Hearing, Disequilibrium, Dizziness, Other Nose/Mouth/Throat: absent: As Per HPI, Epistaxis, Nasal Congestion, Nasal Discharge, Nasal Obstruction, Nasal Trauma, Nose Pain, Post Nasal Drip, Sinus Pain, Sinus Pressure, Bleeding Gums, Change in Voice, Dental Pain, Dry Mouth, Dysphagia, Halitosis, Hoarsness, Lip Swelling, Mouth Lesions, Mouth Pain, Odynophagia, Sore Throat, Throat Swelling, Tongue Swelling, Facial Pain, Neck Pain, Neck Mass, Other - Cardiovascular Cardiovascular: Rapid Heart Rate - Respiratory Respiratory: absent: As Per HPI, Cough, Dyspnea, Hemoptysis, Dyspnea on Exertion , Wheezing, Snoring, Stridor, Pain on Inspiration, Chest Congestion, Excessive Mucous Production, Change in Mucous Color, Pain with Coughing, Other - Gastrointestinal Gastrointestinal: absent: As Per HPI, Abdominal Pain, Belching, Bloating, Change in Bowel Habits, Change in Stool Character, Coffee Ground Emesis, Constipation, Cramping, Diarrhea, Dyspepsia, Dysphagia, Early Satiety, Excessive Flatus, Fecal Incontinence, Heartburn, Hematemesis, Hematochezia, Loose Stools, Melena, Nausea, Odynophagia, Temesmus, Vomiting, Other - Musculoskeletal Musculoskeletal: absent: As Per HPI, Abnormal Gait, Arthralgias, Atrophy, Back Pain, Deformity, Joint Swelling, Limited Range of Motion, Loss of Height, Muscle Cramps, Muscle Weakness, Myalgias, Neck Pain, Numbness, Radiating Pain into Limb, Stiffness, Tingling, Other - Integumentary Integumentary: absent: As Per HPI, Acne, Alopecia, Bleeding Lesions, Change in Hair, Change in Nails, Change in Pigmentation, Changing Lesions, Dry Skin, Erythema, Furuncle, Hirsutism, Lesions, New Lesions, Non-Healing Lesions, Photosensitivity, Pruritus, Rash, Skin Pain, Skin Ulcer, Sores, Striae, Swelling , Unusual Bruising, Wounds, Jaundice, Other - Neurological Neurological: absent: As Per HPI, Abnormal Gait, Abnormal Hearing, Abnormal Movements, Abnormal Speech, Behavioral Changes, Burning Sensations, Confusion, Convulsions, Disequilibrium, Dizziness, Numbness, Focal Weakness, Frequent Falls , Headaches, Lack of Coordination, Loss of Vision, Memory Loss, Paresthesias, Radicular Pain, Restless Legs, Sensory Deficit, Syncope, Tingling, Tremor, Vertigo, Weakness, Other Visual Disturbances, Other - Psychiatric Psychiatric: absent: As Per HPI, Abnormal Sleep Pattern, Anhedonia, Anxiety, Auditory Hallucinations, Behavioral Changes, Change in Appetite, Change in Libido, Confusion, Depression, Difficulty Concentrating, Hallucinations, Homicidal Ideation, Hopelessness, Irritability, Memory Loss, Mood Swings, Panic Attacks, Paranoia, Suicidal Ideation, Visual Hallucinations, Tactile Hallucinations, Other - Endocrine Endocrine: absent: As Per HPI, Change in Body Appearance, Change in Libido, Cold Intolorance, Deepening of Voice, Excessive Sweating, Fatigue, Flushing, Heat Intolorance, Increase in Ring/Shoe/Hat Size, Palpitations, Polydipsia, Polyphagia, Polyuria, Other - Hematologic/Lymphatic Hematologic: absent: As Per HPI, Easy Bleeding, Easy Bruising, Lymphadenopathy, Other Past Patient History - Infectious Disease Hx of Infectious Diseases: None, C.diff - Tetanus Immunizations Tetanus Immunization: Unknown - Past Medical History & Family History Past Medical History?: Yes - Past Social History Smoking Status: Never Smoked - CARDIAC Hx Cardiac Disorders: Yes (A FIB, CARDIAC ARRHYTHMIA,) Hx Congestive Heart Failure: Yes Hx Hypertension: Yes - PULMONARY Hx Chronic Obstructive Pulmonary Disease (COPD): Yes - NEUROLOGICAL Hx Transient Ischemic Attacks (TIA): Yes - HEENT Hx HEENT Problems: Yes Hx Cataracts: Yes Hx Deafness: Yes Other/Comment: EYAK - RENAL Hx Chronic Kidney Disease: Yes (bladder/urine infection) - HEMATOLOGICAL/ONCOLOGICAL Hx Anemia: Yes - INTEGUMENTARY Hx Dermatological Problems: Yes Hx Squamous Cell: Yes - MUSCULOSKELETAL/RHEUMATOLOGICAL Hx Arthritis: Yes - GASTROINTESTINAL Hx Gastrointestinal Disorders: Yes Hx Clostridium Difficile: Yes Hx Colitis: Yes Other/Comment: HX of fecal transplant - GENITOURINARY/GYNECOLOGICAL Hx Genitourinary Disorders: Yes Hx Hematuria: Yes (urinary retention) Hx Prostate Problems: Yes (BPH) Other/Comment: Suprapubic Catheter secondary to big prostate. 04/17/15 IR CYSTOSTOMY TUBE INSERTION. 10/29/15, 04/23/16 CYSTO WITH CYSTOSTOMY TUBE CHANGE - SURGICAL HISTORY Hx Surgeries: Yes Hx Herniorrhaphy: Yes Other/Comment: TURP-2011 HERNIA REPAIR 2011,Cystoscopy-01/06/14,Suprapubic Cystostomy-01/28/14,Urethral dilatation-12/09/13,. EXCISION FACIAL CYST. , 11/10/16-CYSTO CHANGE CYSTOSTOMY TUBE - ANESTHESIA Hx Anesthesia: Yes Hx Anesthesia Reactions: No Hx Malignant Hyperthermia: No Meds Allergies/Adverse Reactions: Allergies Allergy/AdvReac Type Severity Reaction Status Date / Time budesonide [From Symbicort] Allergy SHORTNESS Verified 03/14/17 18:34 OF BREATH ciprofloxacin Allergy RASH Verified 03/14/17 18:34 dabigatran etexilate Allergy RASH Verified 03/14/17 18:34 formoterol fumarate Allergy SHORTNESS Verified 03/14/17 18:34 [From Symbicort] OF BREATH latex Allergy RASH Verified 03/14/17 18:34 Sulfa (Sulfonamide Allergy RASH Verified 03/14/17 18:34 Antibiotics) - Medications Medications: Current Medications Albuterol/Ipratropium (Duoneb 3 Mg/0.5 Mg (3 Ml) Ud) 3 ml INH RQ6 [facility] Last Admin: 03/20/17 13:10 Dose: 3 ml Finasteride (Proscar) 5 mg PO DAILY [facility] Last Admin: 03/20/17 09:35 Dose: 5 mg Ceftriaxone Sodium (Rocephin Iv 1 Gm Duplex) 50 mls @ 100 mls/hr IVPB Q12H [facility] Last Admin: 03/20/17 08:00 Dose: 100 mls/hr Metoprolol Tartrate (Lopressor) 25 mg PO BID [facility] Last Admin: 03/20/17 09:35 Dose: 25 mg Mirtazapine (Remeron) 7.5 mg PO [facility] Last Admin: 03/19/17 21:17 Dose: 7.5 mg Promethazine HCl/Dextromethorphan (Phenergan Dm Syrup) 10 ml PO [facility] Last Admin: 03/19/17 21:17 Dose: 10 ml Saccharomyces Boulardii (Florastor) 500 mg PO BID [facility] Last Admin: 03/20/17 09:35 Dose: 500 mg Physical Exam - Constitutional Appears: Non-toxic - Head Exam Head Exam: NORMAL INSPECTION - Eye Exam Eye Exam: Normal appearance - ENT Exam ENT Exam: Mucous Membranes Moist - Neck Exam Neck exam: Positive for: Full Rom - Respiratory Exam Respiratory Exam: Decreased Breath Sounds - Cardiovascular Exam Cardiovascular Exam: Irregular Rhythm - GI/Abdominal Exam GI & Abdominal Exam: Normal Bowel Sounds - Rectal Exam Rectal Exam: Deferred - Extremities Exam Extremities exam: Positive for: pedal edema - Back Exam Back exam: NORMAL INSPECTION - Neurological Exam Neurological exam: Alert, Oriented x3 - Psychiatric Exam Psychiatric exam: Normal Affect - Skin Skin Exam: Normal Color Results - Vital Signs Recent Vital Signs: Last Vital Signs Temp 98.4 F 03/20/17 08:28 Pulse 107 H 03/20/17 08:28 Resp 20 03/20/17 08:28 BP 125/79 03/20/17 09:35 Pulse Ox 99 03/20/17 08:28 - Labs Result Diagrams: 03/17/17 05:59 03/17/17 05:59 - EKG Data EKG Interpreted by: Myself Assessment & Plan (1) Chronic atrial fibrillation Assessment and Plan: I discussed that patient will need AV shanika blocking therapy. I agree with metoprolol. continue all other medications. Patient is not an ideal candidate for anticoagulation. Status: Acute
[2017-03-20] MEDS: Promethazine DM 12.5 mg-30 mg/10 ml Syrup PO SCH (21:04)
[2017-03-20 21:53] LABS: URINE BACTERIA MOD (<OCC); URINE BILIRUBIN NEGATIVE (NEGATIVE); URINE BLOOD 2+ (NEGATIVE); URINE CLARITY Turbid (Clear); URINE COLOR Yellow (YELLOW); URINE GLUCOSE (UA) NORMAL (Normal); URINE LEUKOCYTE ESTERASE 2+ Leu/uL (Negative); URINE NITRATE NEGATIVE (NEGATIVE); URINE PROTEIN 1+ mg/dL (NEGATIVE); URINE UROBILINOGEN NORMAL mg/dL (0.2-1.0); WBC CLUMPS MANY /hpf
[2017-03-21] MEDS: Albuterol-Ipratrop 3 mg / 0.5 (3 ml) UD INH SCH ×4 (01:11→19:44)
[2017-03-21 06:44] LABS: TB ANTIGEN MINUS NIL <0.00 IU/mL
[2017-03-21] MEDS ORDERED: Digoxin 500 mcg/2ml (0.5 mg/2ml) Inj IVP ONE (09:41)
[2017-03-21] MEDS: Saccharomyces Boulardi 250 mg Cap PO SCH ×2 (10:09→18:18)
[2017-03-21] MEDS: Nystatin 100,000 Units/ml Oral Susp 5 ml UD PO SCH ×3 (10:10→18:18)
[2017-03-21 10:14] VITALS: PULSE 69
[2017-03-21] MEDS: cefTRIAXone IV 1 gm in Dextros 50 ML IVPB SCH (10:22)
--- NOTE | 2017-03-21 11:58 | CP.PCM.PN ---
Subjective - Date & Time of Evaluation Date of Evaluation: 03/21/17 Time of Evaluation: 11:58 - Subjective Subjective: CHIEF COMPLAINTS TODAY : AFEBRILE, no new complaints. S/P PICC LINE QUANTIFERON GOLD TB TEST -VE ROS HEENT : N. Resp : No SOB wheezing, NO HEMOPTYSIS Cardio : No CP, PND orthopnea GI : No abd. Pain, n/v BUSINESS PROGRAMMER : No headache , focal deficit. Musculoskel : N Ext. : Pedal pulses intact, no edema or calf pain Derm : N Psych : N. PE. Pt. is alert awake in no distress. V.S As noted in the chart Head ,ear nose,throat and eyes : Normal. Neck : Supple with normal carotids. Lungs: FEW RHONCHI RIGHT-SIDED. Heart : S1 & S2 normal . . No murmur. S4 + Abd : Soft non tender with normal bowel sounds.+VE SUPRAPUBIC CYSTOSTOMY. URINE CLEARING UP. Neuro : Moves all ext. with no localized deficit. Ext : No edema with intact pulses. Neg. calf tenderness Derm : No rashes or decubitus ulcer. Radiology/Labs . LABS REVIEWED. URINE CULTURE -VE REPEAT. SPUTUM +VE YEAST SP. Urine culture positive +ve Citrobacter freundii. s-Azactam. CT CHEST W/O CONTRAST NOTED-RIGHT LOWER LOBE AIRSPACE DISEASE AND BILATERAL SMALL PLEURAL EFFUSIONS. sCATTERED PULMONARY NODULES RIGHT LUNG. 8MM NODULE LEFT POSTERIOR TRACHEAL WALL ( see full report .) Objective - Vital Signs/Intake and Output Vital Signs (last 24 hours): Temp Pulse Resp BP Pulse Ox 98.2 F 127 H 20 130/81 97 03/21/17 09:01 03/21/17 09:01 03/21/17 09:01 03/21/17 10:10 03/21/17 09:01 Intake and Output: 03/21/17 03/21/17 06:59 18:59 Intake Total 470 Output Total 900 Balance -430 - Medications Medications: Current Medications Albuterol/Ipratropium (Duoneb 3 Mg/0.5 Mg (3 Ml) Ud) 3 ml INH RQ6 [facility] Last Admin: 03/21/17 07:41 Dose: 3 ml Finasteride (Proscar) 5 mg PO DAILY [facility] Last Admin: 03/21/17 10:10 Dose: 5 mg Ceftriaxone Sodium (Rocephin Iv 1 Gm Duplex) 50 mls @ 100 mls/hr IVPB Q12H [facility] Last Admin: 03/21/17 10:22 Dose: 100 mls/hr Metoprolol Tartrate (Lopressor) 25 mg PO BID [facility] Last Admin: 03/21/17 10:10 Dose: 25 mg Mirtazapine (Remeron) 7.5 mg PO [facility] Last Admin: 03/20/17 21:03 Dose: 7.5 mg Nystatin (Nystatin Oral Susp) 5 ml PO TID [facility] Stop: 03/28/17 10:01 Last Admin: 03/21/17 10:10 Dose: 5 ml Promethazine HCl/Dextromethorphan (Phenergan Dm Syrup) 10 ml PO [facility] Last Admin: 03/20/17 21:04 Dose: 10 ml Saccharomyces Boulardii (Florastor) 500 mg PO BID [facility] Last Admin: 03/21/17 10:09 Dose: 500 mg - Labs Labs: 03/17/17 05:59 03/17/17 05:59 Assessment and Plan (1) Sepsis Status: Acute (2) UTI (lower urinary tract infection) Status: Acute (3) Dehydration Status: Acute (4) Renal insufficiency Status: Acute (5) HTN (hypertension) Status: Acute (6) Suprapubic catheter Status: Acute - Assessment and Plan (Free Text) Assessment: IMPRESSION; SEPSIS RIGHT LOWER LOBE PNEUMONIA- HEMOPTYSIS R/O ATYPICAL PNEUMONIA R/O MALIGNANCY UROSEPSIS-CITROBACTER FREUNDII. RENAL INSUFFICIENCY HYPERTENSION SUPRAPUBIC CYSTOSTOMY. HX OF SQUAMOUS CELL CA FACE. PLAN: NYSTATIN 5 Ml SWISH AND SWALLOW 3 TIMES A DAY X 7 DAYS. CASE DISCUSSED WITH NURSE PRACTITIONER. MS. FIGUEREDO. PATIENT CAN BE DISCHARGED ON iv rOCEPHIN 2 G ONCE A DAY DAILY FOR 10 DAYS. fOLLOW-UP cbc, bmp, LIVER PROFILE WEEKLY AND NOTIFY pmd. picc LINE CARE PER INFUSION COMPANY. REPORTED PATIENT WILL BE GOING HOME ON THURSDAY ABX COULD NOT BE ARRANGED PATIENT WILL BE FOLLOWED WHILE IN THE HOSPITAL.
[2017-03-21 12:10] LABS: BASO # 0.1 K/uL (0.0-0.2); BASO % 0.8 % (0.0-2.0); EOS # 0.3 K/uL (0.0-0.7); EOS % 3.1 % (0.0-4.0); HEMOGLOBIN 11.7 g/dL (12.0-18.0); LYMPH % 9.4 % (20.0-40.0); MEAN CELL VOLUME 96.7 fL (80.0-94.0); MEAN CORPUSCULAR HEMOGLOBIN 32.3 pg (27.0-31.0); MEAN CORPUSCULAR HGB CONC 33.4 g/dL (33.0-37.0); MEAN PLATELET VOLUME 9.3 fL (7.2-11.7); MONO # 1.7 K/uL (0.0-0.8); MONO % 16.6 % (0.0-10.0); NEUT # 7.3 K/uL (1.8-7.0); NEUT % 70.1 % (50.0-75.0); PLATELET COUNT 241 K/uL (130-400); RBC 3.61 Mil/uL (4.40-5.90); RED CELL DISTRIBUTION WIDTH 15.8 % (11.5-14.5); WHITE BLOOD COUNT 10.5 K/uL (4.8-10.8)
[2017-03-21 12:20] LABS: ALBUMIN 2.8 g/dL (3.5-5.0)
[2017-03-21 12:23] LABS: ALB/GLOB RATIO 0.8 (1.0-2.1); BILIRUBIN,DIRECT 0.4 mg/dL (0.0-0.4)
[2017-03-21 12:24] LABS: CALCIUM 8.1 mg/dl (8.6-10.4)
[2017-03-21 12:35] LABS: ANISOCYTOSIS SLIGHT; BASOPHIL 1 % (0-2); EOSINOPHIL 1 % (0-4); LYMPHOCYTE 10 % (20-40); MONOCYTE 14 % (0-10); NEUTROPHIL 74 % (50-75); PLATELET ESTIMATE NORMAL (NORMAL); TOTAL CELLS COUNTED 100
[2017-03-21 12:36] LABS: LARGE PLATELETS PRESENT; OVALOCYTES SLIGHT
--- NOTE | 2017-03-21 15:38 | CP.PCM.PN ---
Subjective - Date & Time of Evaluation Date of Evaluation: 03/21/17 Time of Evaluation: 15:36 - Subjective Subjective: S: No fever. Lying in bed. Appears comfortable. Objective - Vital Signs/Intake and Output Vital Signs (last 24 hours): Temp Pulse Resp BP Pulse Ox 98.2 F 127 H 20 130/81 97 03/21/17 09:01 03/21/17 09:01 03/21/17 09:01 03/21/17 10:10 03/21/17 09:01 Intake and Output: 03/21/17 03/21/17 06:59 18:59 Intake Total 470 Output Total 900 Balance -430 - Medications Medications: Current Medications Albuterol/Ipratropium (Duoneb 3 Mg/0.5 Mg (3 Ml) Ud) 3 ml INH RQ6 [facility] Last Admin: 03/21/17 13:35 Dose: 3 ml Finasteride (Proscar) 5 mg PO DAILY [facility] Last Admin: 03/21/17 10:10 Dose: 5 mg Ceftriaxone Sodium (Rocephin Iv 1 Gm Duplex) 50 mls @ 100 mls/hr IVPB Q12H [facility] Last Admin: 03/21/17 10:22 Dose: 100 mls/hr Metoprolol Tartrate (Lopressor) 25 mg PO BID [facility] Last Admin: 03/21/17 10:10 Dose: 25 mg Mirtazapine (Remeron) 7.5 mg PO HS [facility] Last Admin: 03/20/17 21:03 Dose: 7.5 mg Nystatin (Nystatin Oral Susp) 5 ml PO TID [facility] Stop: 03/28/17 10:01 Last Admin: 03/21/17 14:11 Dose: 5 ml Promethazine HCl/Dextromethorphan (Phenergan Dm Syrup) 10 ml PO HS [facility] Last Admin: 03/20/17 21:04 Dose: 10 ml Saccharomyces Boulardii (Florastor) 500 mg PO BID [facility] Last Admin: 03/21/17 10:09 Dose: 500 mg - Labs Labs: 03/21/17 11:53 03/21/17 11:53 - Constitutional Appears: Chronically Ill - Head Exam Head Exam: NORMAL INSPECTION - ENT Exam ENT Exam: Normal Exam - Neck Exam Neck Exam: Normal Inspection - Respiratory Exam Respiratory Exam: NORMAL BREATHING PATTERN - Cardiovascular Exam Cardiovascular Exam: Irregular Rhythm - GI/Abdominal Exam GI & Abdominal Exam: Soft - Rectal Exam Rectal Exam: Deferred - Extremities Exam Extremities Exam: Normal Inspection - Neurological Exam Neurological Exam: Awake Assessment and Plan (1) Sepsis Status: Acute (2) Atrial fibrillation Status: Chronic (3) Renal insufficiency Status: Acute - Assessment and Plan (Free Text) Assessment: A/P: Continue medications
--- NOTE | 2017-03-21 18:53 | CP.PCM.PN ---
Objective - Vital Signs/Intake and Output Vital Signs (last 24 hours): Temp Pulse Resp BP Pulse Ox 98.2 F 96 H 20 120/75 95 03/21/17 15:50 03/21/17 15:50 03/21/17 15:50 03/21/17 18:18 03/21/17 15:50 Intake and Output: 03/21/17 03/21/17 06:59 18:59 Intake Total 470 Output Total 900 Balance -430 - Medications Medications: Current Medications Albuterol/Ipratropium (Duoneb 3 Mg/0.5 Mg (3 Ml) Ud) 3 ml INH RQ6 [facility] Last Admin: 03/21/17 13:35 Dose: 3 ml Finasteride (Proscar) 5 mg PO DAILY [facility] Last Admin: 03/21/17 10:10 Dose: 5 mg Ceftriaxone Sodium 2 gm/ (Sodium Chloride) 100 mls @ 100 mls/hr IVPB Q24H [facility] Ceftriaxone Sodium (Rocephin Iv 1 Gm Duplex) 50 mls @ 100 mls/hr IVPB Q12H [facility] Stop: 03/21/17 22:29 Metoprolol Tartrate (Lopressor) 25 mg PO BID [facility] Last Admin: 03/21/17 18:18 Dose: 25 mg Mirtazapine (Remeron) 7.5 mg PO HS [facility] Last Admin: 03/20/17 21:03 Dose: 7.5 mg Nystatin (Nystatin Oral Susp) 5 ml PO TID [facility] Stop: 03/28/17 10:01 Last Admin: 03/21/17 18:18 Dose: 5 ml Promethazine HCl/Dextromethorphan (Phenergan Dm Syrup) 10 ml PO HS [facility] Last Admin: 03/20/17 21:04 Dose: 10 ml Saccharomyces Boulardii (Florastor) 500 mg PO BID [facility] Last Admin: 03/21/17 18:18 Dose: 500 mg - Labs Labs: 03/21/17 11:53 03/21/17 11:53 Assessment and Plan (1) Hemoptysis Status: Acute (2) COPD (chronic obstructive pulmonary disease) Status: Acute
[2017-03-21] MEDS: Promethazine DM 12.5 mg-30 mg/10 ml Syrup PO SCH (21:22)
[2017-03-21] MEDS ORDERED: cefTRIAXone IV 1 gm in Dextros 50 ML IVPB SCH (22:00)
[2017-03-22] MEDS: Albuterol-Ipratrop 3 mg / 0.5 (3 ml) UD INH SCH ×3 (02:04→13:01)
[2017-03-22] MEDS: Nystatin 100,000 Units/ml Oral Susp 5 ml UD PO SCH (09:10)
[2017-03-22] MEDS: Saccharomyces Boulardi 250 mg Cap PO SCH ×2 (09:10→17:31)
[2017-03-22] MEDS ORDERED: cefTRIAXone 2 GM in Sodium Chloride 0.9% 100 ML IVPB SCH (10:00)
--- NOTE | 2017-03-22 10:37 | CP.PCM.PN ---
Subjective - Date & Time of Evaluation Date of Evaluation: 03/22/17 Time of Evaluation: 10:35 - Subjective Subjective: S: Feels apolinar. Lying in bed comfrtably. Objective - Vital Signs/Intake and Output Vital Signs (last 24 hours): Temp Pulse Resp BP Pulse Ox 97.7 F 92 H 20 128/78 97 03/22/17 08:27 03/22/17 08:27 03/22/17 08:27 03/22/17 09:07 03/22/17 08:27 Intake and Output: 03/22/17 03/22/17 06:59 18:59 Intake Total 100 Output Total 1400 Balance -1300 - Medications Medications: Current Medications Albuterol/Ipratropium (Duoneb 3 Mg/0.5 Mg (3 Ml) Ud) 3 ml INH RQ6 [facility] Last Admin: 03/22/17 07:37 Dose: 3 ml Finasteride (Proscar) 5 mg PO DAILY [facility] Last Admin: 03/22/17 09:07 Dose: 5 mg Ceftriaxone Sodium 2 gm/ (Sodium Chloride) 100 mls @ 100 mls/hr IVPB Q24H [facility] Last Admin: 03/22/17 09:10 Dose: 100 mls/hr Metoprolol Tartrate (Lopressor) 25 mg PO BID [facility] Last Admin: 03/22/17 09:07 Dose: 25 mg Mirtazapine (Remeron) 7.5 mg PO HS [facility] Last Admin: 03/21/17 21:21 Dose: 7.5 mg Nystatin (Nystatin Oral Susp) 5 ml PO TID [facility] Stop: 03/28/17 10:01 Last Admin: 03/22/17 09:10 Dose: 5 ml Promethazine HCl/Dextromethorphan (Phenergan Dm Syrup) 10 ml PO HS [facility] Last Admin: 03/21/17 21:22 Dose: 10 ml Saccharomyces Boulardii (Florastor) 500 mg PO BID [facility] Last Admin: 03/22/17 09:10 Dose: 500 mg - Labs Labs: 03/21/17 11:53 03/21/17 11:53 - Constitutional Appears: Chronically Ill - Head Exam Head Exam: NORMAL INSPECTION - ENT Exam ENT Exam: Normal Exam - Neck Exam Neck Exam: Normal Inspection - Respiratory Exam Respiratory Exam: NORMAL BREATHING PATTERN - Cardiovascular Exam Cardiovascular Exam: Irregular Rhythm - GI/Abdominal Exam GI & Abdominal Exam: Soft - Rectal Exam Rectal Exam: Deferred - Extremities Exam Extremities Exam: Normal Inspection Assessment and Plan (1) Sepsis Status: Acute (2) Atrial fibrillation Status: Chronic (3) Renal insufficiency Status: Acute - Assessment and Plan (Free Text) Assessment: A/p: Discharge home. Continue Iv abtibiotic
--- NOTE | 2017-03-22 11:42 | CP.PCM.PN ---
Subjective - Date & Time of Evaluation Date of Evaluation: 03/22/17 Time of Evaluation: 10:30 - Subjective Subjective: patient has no current palpitations Objective - Vital Signs/Intake and Output Vital Signs (last 24 hours): Temp Pulse Resp BP Pulse Ox 97.7 F 92 H 20 128/78 97 03/22/17 08:27 03/22/17 08:27 03/22/17 08:27 03/22/17 09:07 03/22/17 08:27 Intake and Output: 03/22/17 03/22/17 06:59 18:59 Intake Total 100 Output Total 1400 Balance -1300 - Medications Medications: Current Medications Albuterol/Ipratropium (Duoneb 3 Mg/0.5 Mg (3 Ml) Ud) 3 ml INH RQ6 [facility] Last Admin: 03/22/17 07:37 Dose: 3 ml Finasteride (Proscar) 5 mg PO DAILY [facility] Last Admin: 03/22/17 09:07 Dose: 5 mg Ceftriaxone Sodium 2 gm/ (Sodium Chloride) 100 mls @ 100 mls/hr IVPB Q24H [facility] Last Admin: 03/22/17 09:10 Dose: 100 mls/hr Metoprolol Tartrate (Lopressor) 25 mg PO BID [facility] Last Admin: 03/22/17 09:07 Dose: 25 mg Mirtazapine (Remeron) 7.5 mg PO HS [facility] Last Admin: 03/21/17 21:21 Dose: 7.5 mg Nystatin (Nystatin Oral Susp) 5 ml PO TID [facility] Stop: 03/28/17 10:01 Last Admin: 03/22/17 09:10 Dose: 5 ml Promethazine HCl/Dextromethorphan (Phenergan Dm Syrup) 10 ml PO HS [facility] Last Admin: 03/21/17 21:22 Dose: 10 ml Saccharomyces Boulardii (Florastor) 500 mg PO BID [facility] Last Admin: 03/22/17 09:10 Dose: 500 mg - Labs Labs: 03/21/17 11:53 03/21/17 11:53 - Constitutional Appears: Non-toxic, Chronically Ill - Head Exam Head Exam: NORMAL INSPECTION - Eye Exam Eye Exam: Normal appearance - ENT Exam ENT Exam: Mucous Membranes Moist - Neck Exam Neck Exam: Full ROM - Respiratory Exam Respiratory Exam: Decreased Breath Sounds - Cardiovascular Exam Cardiovascular Exam: Irregular Rhythm - GI/Abdominal Exam GI & Abdominal Exam: Normal Bowel Sounds - Rectal Exam Rectal Exam: Deferred - Extremities Exam Extremities Exam: absent: Pedal Edema - Back Exam Back Exam: NORMAL INSPECTION - Neurological Exam Neurological Exam: Alert - Psychiatric Exam Psychiatric exam: Normal Affect - Skin Skin Exam: Normal Color Assessment and Plan (1) Chronic atrial fibrillation Assessment & Plan: medical management with lopressor. well controlled. Not ideal candidate for anticoagulation Status: Acute
[2017-03-22 16:15] VITALS: PULSE 82; TEMP 98.9; O2SAT 95
[2017-03-22 17:32] VITALS: BP 120/64
== END 2017-03-22 17:39 | disposition home health service (06) | DRG 871 ==
LOC: C.ER 18:03 → C.9E 20:00 → C.6T 22:01
PROVIDERS: ADMIT Internal Medicine; ATTEND Internal Medicine
PROC: 05H533Z Insertion of Infusion Device into Right Subclavian Vein, Percutaneous Approach (ICD-10-PCS; principal; 2017-03-20)
DX: A41.9 Sepsis, unspecified organism (principal); J18.9 Pneumonia, unspecified organism; N17.9 Acute kidney failure, unspecified; N39.0 Urinary tract infection, site not specified; I13.0 Hypertensive heart and chronic kidney disease with heart failure and stage 1 through stage 4 chronic kidney disease, or unspecified chronic kidney disease; J44.0 Chronic obstructive pulmonary disease with (acute) lower respiratory infection; I50.9 Heart failure, unspecified; R04.2 Hemoptysis; E87.1 Hypo-osmolality and hyponatremia; I48.2 Chronic atrial fibrillation; E86.0 Dehydration; D64.9 Anemia, unspecified; N18.9 Chronic kidney disease, unspecified; N40.0 Benign prostatic hyperplasia without lower urinary tract symptoms; R53.81 Other malaise; M19.90 Unspecified osteoarthritis, unspecified site; H26.9 Unspecified cataract; H91.90 Unspecified hearing loss, unspecified ear; Z85.828 Personal history of other malignant neoplasm of skin; Z93.59 Other cystostomy status; Z86.73 Personal history of transient ischemic attack (TIA), and cerebral infarction without residual deficits; Z87.01 Personal history of pneumonia (recurrent); Z88.1 Allergy status to other antibiotic agents; Z88.2 Allergy status to sulfonamides; Z88.8 Allergy status to other drugs, medicaments and biological substances; Z91.040 Latex allergy status